=== PATIENT | female | born 1950 ===

== ENCOUNTER 2020-08-21 11:38 | Outpatient (REF) | payer MEDICARE, SELFPAY ==
--- NOTE | ~2020-08-21 | MM_ITS ---
EXAMINATION: MM SCREENING DIGITAL BREAST TOMOSYNTHESIS, BILATERAL CLINICAL INFORMATION: Screening. Asymptomatic. The lifetime risk of breast cancer based on the Tyrer-Cuzick Model is 3.0%. COMPARISON: Mammography: March 23, 2019 and studies dating back to October 27, 2013 TECHNIQUE: Digital breast tomosynthesis is performed in both the craniocaudal and mediolateral oblique views along with computer-aided detection (CAD). Synthesized 2D images are generated from the tomosynthesis. FINDINGS: There are scattered areas of fibroglandular density (ACR BI-RADS breast composition Category b). There are no significant masses, abnormal calcifications, or other abnormalities. MM/MM tomosynthesis screening BI IMPRESSION: There are no significant changes from prior study. ASSESSMENT: BI-RADS 1: Negative RECOMMENDATION: Routine annual mammography screening. This patient's information was entered into a reminder system with a target due date for their next mammogram.
== END 2020-08-21 11:39 | disposition home or self-care (01) ==
LOC: HO.MAMMO 11:38
PROVIDERS: Visit Provider Nurse Practitioner Family
DX: Z12.31 Encounter for screening mammogram for malignant neoplasm of breast (principal)
CPT/HCPCS: 77063; 77067

== ENCOUNTER 2020-09-06 10:24 | Outpatient (REF) | payer MEDICARE, SELFPAY | END 2020-09-06 10:25 | disposition home or self-care (01) | LOC: HO.LAB 10:24 | PROVIDERS: Visit Provider Internal Medicine | DX: Z20.822 Contact with and (suspected) exposure to COVID-19 (principal) | CPT/HCPCS: C9803; U0003; U0005 ==

== ENCOUNTER → 2021-01-20 09:37 | Outpatient (BNVA) | payer MEDICARE, SELFPAY | PROVIDERS: PCP Nurse Practitioner Family; Referring Provider Internal Medicine; Visit Provider Internal Medicine | DX: I35.0 Nonrheumatic aortic (valve) stenosis (principal); I35.1 Nonrheumatic aortic (valve) insufficiency; I77.810 Thoracic aortic ectasia; I10 Essential (primary) hypertension | CPT/HCPCS: 93005; 99212 ==

== ENCOUNTER 2021-04-25 11:02 | Outpatient (REF) | payer MEDICARE, SELFPAY ==
--- NOTE | ~2021-04-25 | XR_ITS ---
EXAMINATION: XR SACRUM AND COCCYX CLINICAL INFORMATION: Sacrococcygeal disorders COMPARISON: None TECHNIQUE: 3 views of the sacrum/coccyx. FINDINGS: There is no fracture identified. The coccyx is well aligned. The sacroiliac joints are symmetric. No abnormal sclerosis. No fusion. Degenerative changes of the visualized lower lumbar spine. Nonobstructive bowel gas pattern. XR/XR sacrum coccyx min 2V IMPRESSION: Unremarkable appearance of the sacrum. Degenerative changes at the lower lumbar spine.
== END 2021-04-25 11:03 | disposition home or self-care (01) ==
LOC: HO.XRAY 11:02
PROVIDERS: PCP Nurse Practitioner; Visit Provider Nurse Practitioner
DX: M53.3 Sacrococcygeal disorders, not elsewhere classified (principal)
CPT/HCPCS: 72220

== ENCOUNTER → 2021-05-07 10:02 | Outpatient (REF) | payer MEDICARE, SELFPAY ==
--- NOTE | 2021-05-07 10:07 | CA_ITS ---
Transthoracic Echocardiogram Patient (Last, First, Middle): Angélica Rodriguez, Gender: Female Date of : 1950 Age: 71 Procedure Date: 05/07/2021 Procedure Type: Transthoracic Echocardiogram Location: OP Height: 152.4 cm Weight: 74.84 kg BSA: 1.72 m2 Heart Rate: bpm BP: 138 / 80 mmHg Auto Service Instructor: RORO Referring MD: Nathanael Andrade MD Director Of Education And Training: Apollo Johnson MD Symptoms: I35.0 - Nonrheumatic aortic (valve) stenosis Study Quality: Fair ECG Rhythm: Sinus Conclusions: - 1. Normal LV systolic function with impaired relaxation filling pattern 2. Moderate aortic stenosis 3. Normal RV systolic pressure 4. Mildly dilated ascending aorta 5. No gross pericardial effusion Findings Left Ventricle Normal left ventricular size, thickness, and systolic function. The visually estimated ejection fraction is between 60-65%. Spectral Doppler is indicative of an impaired relaxation filling pattern. E/E prime ratio is between 8 and 15 consistent with indeterminate filling pressures. Right Ventricle Normal right ventricular cavity size and systolic function. Atria Both atria are normal in size. There is no evidence of interatrial shunt. Aortic Valve The aortic valve was not well visualized. There is mild calcification of the aortic valve. There is moderate aortic valve stenosis. The peak aortic gradient is 26 mmHg.The mean gradient is 15 mmHg. The aortic valve area is 1.37 cm2. There is mild aortic valve regurgitation. Mitral Valve There is mild anterior and posterior mitral leaflet thickening. There is trace mitral valve regurgitation. There is no mitral valve stenosis. Pulmonic Valve The pulmonic valve was not well visualized. Tricuspid Valve Likely normal tricuspid valve structure and function. There is mild tricuspid valve regurgitation. The right ventricular systolic pressure is normal. The right ventricular systolic pressure is 23 mmHg. Normal right atrial pressure. There is no evidence of pulmonary hypertension. Great Vessels The pulmonary artery was not well visualized. There is mild dilatation of the ascending aorta measuring 3.80 cm. Venous The inferior vena cava is normal in size and collapses greater than 50% with inspiration. Pericardium/Pleural There is no evidence of pericardial effusion. Prior Study Comparison No significant change compared to prior study dated: 08/18/2019. Measurements 2D Linear Measurements IVSd: 0.76 0.6-0.9/0.6-1.0 cm LVIDd: 4.29 3.9-5.3/4.2-5.9 cm LVIDd Index: 2.49 2.4-3.2/2.2-3.1 cm/m2 LVIDs: 2.92 2.0-3.6 cm LVPWd: 1.20 0.7-1.1 cm LA Diam: 3.40 2.7-3.8/3.0-4.0 cm LAIDs Index: 1.98 1.5-2.3 cm/m2 LV Mass: 172.04 67-162/88-224 g LV Mass Index: 100.02 43-95/49-115 g/m2 LVOT Diam: 2.00 3.0+(-)1.3 cm 2D Systolic Function EF 4C: 61.70 >55% EF 2C: 62.00 >55% EF BiP: 61.50 >55% Mitral Valve MV Pk E: 0.73 MV PK A: 0.89 MV Decel Time: 248.00 E/A: 0.80 E'Lateral: 8.92 E'Medial: 6.64 E/E' Med: 11.00 E/E' Lat: 8.20 PHT: 73.00 MVA PHT: 3.01 Decel [place]: 2.93 Aortic Valve AoV Pk Elvis: 2.53 AoV Mn Elvis: 1.76 AoV VTI: 0.58 AoV Pk Grad: 26.00 Aov Mn Grad: 15.00 NADIRA Cont.VTI: 1.37 AI Pk Elvis: 4.69 AI [place]: 1.91 LVOT LVOT Pk Elvis: 1.12 LVOT Mn Elvis: 0.74 LVOT VTI: 0.25 LVOT Pk Grad: 5.00 LVOT Mn Grad: 3.00 LVOT Diam: 2.00 LVOT Area: 3.14 Diastolic Function MV Pk E: 0.73 MV Pk A: 0.89 E/A: 0.80 E'Medial: 6.64 E/E' Med: 11.00 E' Laterial: 8.92 E/E' Lat: 8.20 Right Ventricle TAPSE (mm): 2.20 Tricuspid Valve TR Pk Elvis: 2.26 TR Pk Grad: 20.00 RA Press: 3.00 RVSP: 23.00 Great Vessels Aorta Ao Asc: 3.80 2.1-3.4 cm Updated in Other Vendor System with Status of Final Apollo Johnson MD electronically signed on 05/08/2021 4:20:43 PM with status of Final
== END ==
LOC: HO.CARD 10:02
PROVIDERS: Visit Provider Internal Medicine
DX: I35.0 Nonrheumatic aortic (valve) stenosis (principal)
CPT/HCPCS: 93306

== ENCOUNTER → 2021-07-07 10:38 | Outpatient (BNVA) | payer MEDICARE, SELFPAY | PROVIDERS: PCP Nurse Practitioner; Referring Provider Nurse Practitioner; Visit Provider Internal Medicine | DX: I35.0 Nonrheumatic aortic (valve) stenosis (principal); I35.1 Nonrheumatic aortic (valve) insufficiency; I77.810 Thoracic aortic ectasia; I10 Essential (primary) hypertension | CPT/HCPCS: 99212 ==

== ENCOUNTER 2021-08-27 11:49 | Outpatient (REF) | payer MEDICARE, SELFPAY ==
--- NOTE | ~2021-08-27 | MM_ITS ---
EXAMINATION: BONE DENSITOMETRY CLINICAL INDICATION: Vitamin D deficiency. COMPARISON: Previous BD dated 07/19/2019 and baseline BD dated 09/04/2010. TECHNIQUE: Using a Airu DXA System (software version: 13.1) manufactured by [employer], dual-energy x-ray absorptiometry was performed of the lumbar spine and left hip. The images are of good technical quality. Summary results are attached. FINDINGS: AP SPINE L1-L3 (excluding L4): The data of L1-L4 has been changed to exclude the L4 vertebral body, because degenerative changes at this level may cause overestimation of lumbar spine density. Current: BMD 1.420 g/cm2, Z-score 3.5, T-score 2.1, normal, 1.1% increase from previous, 0.9% increase from baseline (<5% change is not significant). Prior: BMD 1.405 g/cm2. Baseline: BMD 1.408 g/cm2. LEFT FEMUR, NECK: Current: BMD 0.913 g/cm2, Z-score 0.7, T-score -0.9, normal. Prior: BMD 1.024 g/cm2. Baseline: BMD 1.066 g/cm2. LEFT FEMUR, TOTAL: Current: BMD 1.075 g/cm2, Z-score 1.9, T-score 0.5, normal, 7.7% decrease from previous, 10.5% decrease from baseline (<5% change is not significant). Prior: BMD 1.165 g/cm2. Baseline: BMD 1.201 g/cm2. IDENTIFIED RISK FACTORS: Early menopause, hysterectomy, secondary osteoporosis. HISTORY OF FRACTURE: None listed. MEDICATIONS: Multivitamin, vitamin D. MM/XR DEXA axial skeleton IMPRESSION: 1. DIAGNOSIS: Normal bone density based on the lowest T-score value of -0.9 in the femoral neck applying World Health Organization criteria. 2. 10-YEAR FRACTURE RISK PREDICTION, FRAX: According to the guidelines, FRAX calculation should only be performed on patients in the osteopenia bone density category. Therefore, FRAX was not performed on this patient. 3. Treatment Recommendations: NOF guidelines recommend consideration for treatment in postmenopausal women and men age 50 and older presenting with the following: -A hip or vertebral (clinical or morphometric) fracture. -T-score less than or equal to -2.5 at the femoral neck or spine after appropriate evaluation to exclude secondary causes. -Low bone mass at the hip or spine and a 10-year fracture probability by FRAX of greater than or equal to 3% for hip fracture or greater than or equal to 20% for major osteoporotic fracture based on the [place] adapted WHO algorithm. 4. Other Recommendations: All treatment decisions require clinical judgment and consideration of individual patient factors, including patient preferences, comorbidities, previous drug use, risk factors not captured in the FRAX model (e.g. frailty, falls, vitamin D deficiency, increased bone turnover, interval significant decline in bone density) and possible under or overestimation of fracture risk by FRAX. FUTURE SCAN RECOMMENDATION: People with diagnosed cases of osteoporosis or at high risk for fracture should have regular bone mineral density tests. For patients eligible for Medicare, routine testing is allowed once every 2 years. The testing frequency can be increased to one year for patients who have rapidly progressing disease, those who are receiving or discontinuing medical therapy to restore bone mass, or have additional risk factors.
--- NOTE | ~2021-08-27 | MM_ITS ---
EXAMINATION: MM SCREENING DIGITAL BREAST TOMOSYNTHESIS, BILATERAL CLINICAL INFORMATION: Screening. Asymptomatic. The lifetime risk of breast cancer based on the Tyrer-Cuzick Model is 5%. COMPARISON: Mammography: 08/21/2020, 03/23/2019, 03/08/2018 TECHNIQUE: Digital breast tomosynthesis is performed in both the craniocaudal and mediolateral oblique views along with computer-aided detection (CAD). Synthesized 2D images are generated from the tomosynthesis. Additional bilateral CC views are provided. FINDINGS: There are scattered areas of fibroglandular density (ACR BI-RADS breast composition Category b). There are no significant masses, abnormal calcifications, or other abnormalities. Parenchymal pattern is similar to prior studies. There is no developing density or architectural abnormality. The axilla and skin contours are unremarkable. No significant changes. MM/MM tomosynthesis screening BI IMPRESSION: No mammographic evidence of malignancy. ASSESSMENT: BI-RADS 1: Negative RECOMMENDATION: Routine annual mammography screening. This patient's information was entered into a reminder system with a target due date for their next mammogram.
== END 2021-08-27 11:50 | disposition home or self-care (01) ==
LOC: HO.MAMMO 11:49
PROVIDERS: PCP Registered Nurse; Visit Provider Registered Nurse
DX: Z12.31 Encounter for screening mammogram for malignant neoplasm of breast (principal); Z13.820 Encounter for screening for osteoporosis; Z78.0 Asymptomatic menopausal state; E55.9 Vitamin D deficiency, unspecified
CPT/HCPCS: 77063; 77067; 77080

== ENCOUNTER → 2022-08-11 10:26 | Outpatient (REF) | payer MEDICARE, SELFPAY ==
--- NOTE | 2022-08-11 10:31 | CA_ITS ---
Transthoracic Echocardiogram Patient (Last, First, Middle): Angélica Rodriguez, Gender: Female Date of : 1950 Age: 72 Procedure Date: 08/11/2022 Procedure Type: Transthoracic Echocardiogram Location: OP Height: 157.48 cm Weight: 74.84 kg BSA: 1.76 m2 Heart Rate: 68 bpm BP: 140 / 80 mmHg Metallurgical Engineering Teacher: DEYANIRA Fitzgerald MD: Nathanael Andrade MD Seafood Preparer: Apollo Johnson MD Symptoms: I35.0 - Nonrheumatic aortic (valve) stenosis Study Quality: Adequate ECG Rhythm: Sinus Conclusions: - 1. Normal LV systolic function with grade 1 diastolic dysfunction 2. Moderate aortic stenosis and mild aortic regurgitation 3. Normal RV systolic pressure 4. Mildly dilated ascending aorta at 3.7 cm 5. No gross pericardial effusion Findings Left Ventricle Normal left ventricular size, thickness, and systolic function. The visually estimated ejection fraction is between 60-65%. Spectral Doppler is indicative of an impaired relaxation filling pattern. E/E prime ratio is <8, consistent with normal filling pressures. Evidence suggests grade I (mild) diastolic dysfunction. Right Ventricle Normal right ventricular cavity size and systolic function. Atria Both atria are normal in size. There is no evidence of interatrial shunt. Aortic Valve There is mild calcification of the aortic valve. There is mild thickening of the aortic valve. There is moderate aortic valve stenosis. The mean gradient is 14 mmHg. The aortic valve area is 1.23 cm2. There is mild aortic valve regurgitation. Mitral Valve There is mild anterior and posterior mitral leaflet thickening. There is trace mitral valve regurgitation. There is no mitral valve stenosis. Pulmonic Valve The pulmonic valve is likely normal. Tricuspid Valve Normal tricuspid valve structure. There is trace tricuspid valve regurgitation. The right ventricular systolic pressure is normal. The right ventricular systolic pressure is 18 mmHg. Normal right atrial pressure. There is no evidence of pulmonary hypertension. Great Vessels The pulmonary artery was not well visualized. There is mild dilatation of the ascending aorta measuring 3.70 cm. Venous The inferior vena cava is normal in size and collapses greater than 50% with inspiration. Pericardium/Pleural There is no evidence of pericardial effusion. Prior Study Comparison No significant change compared to prior study dated: 05/07/2021. Measurements 2D Linear Measurements IVSd: 1.04 0.6-0.9/0.6-1.0 cm LVIDd: 3.70 3.9-5.3/4.2-5.9 cm LVIDd Index: 2.10 2.4-3.2/2.2-3.1 cm/m2 LVIDs: 2.37 2.0-3.6 cm LVPWd: 0.95 0.7-1.1 cm LA Diam: 2.50 2.7-3.8/3.0-4.0 cm LAIDs Index: 1.42 1.5-2.3 cm/m2 LV Mass: 139.01 67-162/88-224 g LV Mass Index: 78.98 43-95/49-115 g/m2 LVOT Diam: 1.80 3.0+(-)1.3 cm 2D Systolic Function EF 4C: 59.10 >55% EF 2C: 62.30 >55% EF BiP: 60.40 >55% Mitral Valve MV Pk E: 0.77 MV PK A: 1.08 MV Decel Time: 342.00 E/A: 0.70 E'Lateral: 9.25 E'Medial: 8.38 E/E' Med: 9.10 E/E' Lat: 8.30 PHT: 100.00 MVA PHT: 2.20 Decel [place]: 2.24 Aortic Valve AoV Pk Elvis: 2.34 AoV Mn Elvis: 1.77 AoV VTI: 0.51 AoV Pk Grad: 22.00 Aov Mn Grad: 14.00 NADIRA Cont.VTI: 1.23 LVOT LVOT Pk Elvis: 1.18 LVOT Mn Elvis: 0.84 LVOT VTI: 0.25 LVOT Pk Grad: 6.00 LVOT Mn Grad: 3.00 LVOT Diam: 1.80 LVOT Area: 2.54 Diastolic Function MV Pk E: 0.77 MV Pk A: 1.08 E/A: 0.70 E'Medial: 8.38 E/E' Med: 9.10 E' Laterial: 9.25 E/E' Lat: 8.30 Right Ventricle TAPSE (mm): 20.00 TVS' [place]: 12.10 Tricuspid Valve TR Pk Elvis: 1.92 TR Pk Grad: 15.00 RA Press: 3.00 RVSP: 18.00 Great Vessels Aorta Sinus of Valsalva: 3.40 2.0-3.5 cm Ao Asc: 3.70 2.1-3.4 cm Pulmonary Valve PV Pk Elvis: 0.88 Peak PV Grad: 3.00 Updated in Other Vendor System with Status of Final Apollo Johnson MD electronically signed on 08/12/2022 11:18:53 AM with status of Final
== END ==
LOC: HO.CARD 10:26
PROVIDERS: PCP Registered Nurse; Visit Provider Internal Medicine
DX: I35.0 Nonrheumatic aortic (valve) stenosis (principal)
CPT/HCPCS: 93306

== ENCOUNTER 2022-09-11 11:20 | Outpatient (REF) | payer MEDICARE, SELFPAY ==
--- NOTE | ~2022-09-11 | MM_ITS ---
EXAMINATION: MM SCREENING DIGITAL BREAST TOMOSYNTHESIS, BILATERAL CLINICAL INFORMATION: Screening. Asymptomatic. The lifetime risk of breast cancer based on the Tyrer-Cuzick Model is 7%. COMPARISON: Mammography: 08/27/2021, 08/21/2020, 03/23/2019 TECHNIQUE: Digital breast tomosynthesis is performed in both the craniocaudal and mediolateral oblique views along with computer-aided detection (CAD). Synthesized 2D images are generated from the tomosynthesis. Additional left CC view is provided. FINDINGS: There are scattered areas of fibroglandular density (ACR BI-RADS breast composition Category b). There are no significant masses, abnormal calcifications, or other abnormalities. No architectural abnormality or developing density or significant change from prior studies. The axilla and skin contours are unremarkable. MM/MM tomosynthesis screening BI IMPRESSION: No mammographic evidence of malignancy. ASSESSMENT: BI-RADS 1: Negative RECOMMENDATION: Routine annual mammography screening. This patient's information was entered into a reminder system with a target due date for their next mammogram.
== END 2022-09-11 11:21 | disposition home or self-care (01) ==
LOC: HO.MAMMO 11:20
PROVIDERS: PCP Registered Nurse; Visit Provider Registered Nurse
DX: Z12.31 Encounter for screening mammogram for malignant neoplasm of breast (principal)
CPT/HCPCS: 77063; 77067

== ENCOUNTER → 2022-11-17 12:25 | Outpatient (BNVA) | payer OTHER, SELFPAY | PROVIDERS: PCP Registered Nurse; Referring Provider Registered Nurse; Visit Provider Internal Medicine | DX: I35.0 Nonrheumatic aortic (valve) stenosis (principal); I35.1 Nonrheumatic aortic (valve) insufficiency; I77.810 Thoracic aortic ectasia; I10 Essential (primary) hypertension | CPT/HCPCS: 93005; 99212 ==

== ENCOUNTER 2023-07-05 12:02 | Outpatient (REF) | payer OTHER, SELFPAY ==
[2023-07-05 13:47] LABS: Alanine Aminotransferase 14 U/L (0-31); Alkaline Phosphatase 99 U/L (39-117); Anion Gap 10 (12-20); Aspartate Amino Transferase 20 U/L (5-31); Bilirubin Total 0.4 mg/dL (0.0-1.0); Blood Urea Nitrogen 11 mg/dL (9-16); Calcium 9.7 mg/dL (8.4-10.2); Carbon Dioxide 27 mmol/L (22-29); Chloride 107 mmol/L (96-108); Cholesterol 213 mg/dL (<200); Estimated Glomerular Filt Rate > 60; Glucose Random 102 mg/dL (60-115); HDL Cholesterol 52 mg/dL (>40); LDL Cholesterol Calculated 128 mg/dL (<100); Potassium 4.3 mmol/L (3.3-5.1); Sodium 140 mmol/L (135-145); Total Protein 7.9 g/dL (6.5-8.0); Triglycerides 166 mg/dL (<150)
[2023-07-05 14:02] LABS: TSH reflex Free T4 0.74 uIU/mL (0.32-4.0); Vitamin D 25-OH Total 27.4 ng/mL (>30)
[2023-07-05 17:44] LABS: Creatinine Urine 199.83 mg/dL; Microalbum/Creatinine Ratio Ur 12.5 ug/mg cr (<30)
== END 2023-07-05 12:03 | disposition home or self-care (01) ==
LOC: HO.HHCL 12:02
PROVIDERS: Visit Provider Registered Nurse
DX: E55.9 Vitamin D deficiency, unspecified (principal); E11.9 Type 2 diabetes mellitus without complications
CPT/HCPCS: 36415; 80053; 80061; 82043; 82306; 82570; 84443

== ENCOUNTER 2023-09-20 14:01 | Outpatient (REF) | payer MEDICARE, SELFPAY | END 2023-09-20 14:02 | disposition home or self-care (01) | LOC: HO.MAMMO 14:01 | PROVIDERS: PCP Registered Nurse; Visit Provider Registered Nurse | DX: Z12.31 Encounter for screening mammogram for malignant neoplasm of breast (principal) | CPT/HCPCS: 77063; 77067 ==

== ENCOUNTER → 2023-09-20 14:45 | Outpatient (BNV) | payer MEDICARE, SELFPAY | PROVIDERS: PCP Registered Nurse; Visit Provider Radiology Diagnostic Radiology | DX: Z12.31 Encounter for screening mammogram for malignant neoplasm of breast (principal) | CPT/HCPCS: 77063; 77067 ==

== ENCOUNTER 2023-11-18 11:58 | Outpatient (AMB) | payer OTHER, SELFPAY ==
--- NOTE | 2023-11-18 12:34 | A.OFFVIS_ITS ---
Vital Signs 11/18/23 12:35 Height 5 ft 2 in Weight 162 lb 4.163 oz BMI 29.7 BP 140/64 H Blood Pressure Location Lt brachial Position Sitting Pulse 59 Pulse Source Monitor Intake Visit Reasons: 1 yr f/up s/p echo Wan Support Specialist Required: Yes Wan Support Specialist Name: [id number]/[email or web address] Accompanied by: Grand Child Allergies No Known Allergies Allergy (Verified 11/17/22 12:41) Medication List - Last Reconciled 11/18/23 by Nathanael Andrade MD cholecalciferol (vitamin D3) 50 mcg PO DAILY docusate sodium 100 mg PO BID PRN lisinopril 20 mg PO DAILY metformin 500 mg PO QPM rosuvastatin 20 mg PO BEDTIME HPI Comments Details: Angélica returns for follow-up regarding aortic valve stenosis. Overall, no specific cardiac complaints. Doing okay. [facility] Medical History (Updated 11/18/23 @ 12:49 by Nathanael Andrade MD) Non-rheumatic aortic stenosis Essential hypertension Surgical History Hx of colonoscopy Hx of hysterectomy Hx of section Family History Father Diabetes Mother No problems noted. Social History Patient Tobacco Use Status: Never used Tobacco Review of Systems Const Denies chills, Denies fatigue, Denies fever(s), Denies frequent falls, Denies weakness, Denies weight gain and Denies weight loss ENT Denies dizziness Card Denies chest pain, Denies leg edema, Denies lightheadedness, Denies palpitations, Denies dyspnea and Denies dyspnea on exertion Resp Denies cough, Denies dyspnea and Denies dyspnea on exertion GI Denies hematochezia Musc Denies abnormal gait, Denies muscle weakness, Denies numbness, Denies radiating pain into limb and Denies tingling Neuro Denies abnormal gait, Denies dizziness, Denies frequent falls, Denies numbness, Denies tingling and Denies weakness Endo Denies fatigue and Denies palpitations Physical Exam Vital Signs: Last Vital Signs Pulse 59 11/18/23 12:35 BP 140/64 H 11/18/23 12:35 BMI result Body Mass Index 29.7 Const General: comfortable and no acute distress Orientation/consciousness: patient oriented x3 HEENT Other: Unremarkable Head: Yes normal to inspection Neck Neck: Yes normal visual inspection Chest Chest palpation & inspection: normal inspection of the chest Resp Auscultation: clear to auscultation bilaterally Cardio Palpation: normal PMI Heart sounds: S1 normal heart sound present, S2 normal heart sound present, no gallops, Murmur heart sound present systolic III/ and at the right sternal border and no rubs GI Palpation (GI): Soft to palpation Back/Spine/Pelvis Other: unremarkable Skin General skin exam: no rashes or lesions noted Neuro General: patient oriented x3 Extrem General: Yes normal to inspection Psych Mental Status: mental status grossly normal Office Procedures EKG Details: EKG with sinus rhythm at 59/Min; voltage criteria for LVH; [place] [id number], Complete Assessment & Plan Assessment & Plan (1) Non-rheumatic aortic stenosis: Code(s): I35.0 - Nonrheumatic aortic (valve) stenosis Category: Medical (2) Non-rheumatic aortic regurgitation: Code(s): I35.1 - Nonrheumatic aortic (valve) insufficiency Category: Medical (3) Essential hypertension: Code(s): I10 - Essential (primary) hypertension Category: Medical Plan In the last echocardiogram, mean gradient across aortic valve was 14 mm Hg. Calculated valve area of 1.2 sq cm. Overall, thought to be moderate aortic stenosis. Mild aortic regurgitation. Ascending aortic size was 3.7 cm. As it has been almost a year, we can recheck the study. With regard to high blood pressure, slightly elevated today. Advised her to do home blood pressure checks and contact us for any persistently elevated blood pressure > 140 mm Hg. Discussed with granddaughter who came for appointment. Follow-up in 1 year. Orders: Orders CA echo transthoracic complete Today I35.0 - Nonrheumatic aortic (valve) stenosis Coding Level of Care Code Est Pt Level 4 (68215) Diagnoses Non-rheumatic aortic stenosis I35.0 Non-rheumatic aortic regurgitation I35.1 Essential hypertension I10 CPT Codes EKG - CPT: 52866-[id number], Complete ([id number])
[2023-11-18 12:35] VITALS: BP 140/64; PULSE 59; BMI 29.7
== END 2023-11-18 12:57 | disposition home or self-care (01) ==
PROVIDERS: PCP Registered Nurse; Visit Provider Internal Medicine
DX: I35.0 Nonrheumatic aortic (valve) stenosis (principal); I35.1 Nonrheumatic aortic (valve) insufficiency; I10 Essential (primary) hypertension
CPT/HCPCS: 93010; 99214

== ENCOUNTER → 2023-11-18 11:58 | Outpatient (BNVA) | payer OTHER, SELFPAY | PROVIDERS: PCP Registered Nurse; Visit Provider Internal Medicine | DX: I35.0 Nonrheumatic aortic (valve) stenosis (principal); I35.1 Nonrheumatic aortic (valve) insufficiency; I10 Essential (primary) hypertension | CPT/HCPCS: 93005; 99212 ==

== ENCOUNTER → 2023-12-08 10:27 | Outpatient (REF) | payer MEDICARE, SELFPAY ==
--- NOTE | 2023-12-08 10:32 | CA_ITS ---
Transthoracic Echocardiogram Patient (Last, First, Middle): Angélica Rodriguez, Gender: Female Date of : 1950 Age: 73 Procedure Date: 12/08/2023 Procedure Type: Transthoracic Echocardiogram Location: OP Height: 160.02 cm Weight: 73.94 kg BSA: 1.77 m2 Heart Rate: bpm BP: 140 / 78 mmHg Refrigeration Mechanic: TO Referring MD: Nathanael Andrade MD Symptoms: I35.0 - Nonrheumatic aortic (valve) stenosis Study Quality: Adequate Conclusions: - 1. Normal LV ejection fraction 60 65% with impaired relaxation filling pattern 2. Moderate aortic stenosis and mild aortic regurgitation 3. [id number] enlargement of ascending aorta at 4.4 cm which is further large compared to prior study 4. Normal RV systolic pressure 5. No gross pericardial effusion Findings Left Ventricle Normal left ventricular size, thickness, and systolic function. The visually estimated ejection fraction is between 60-65%. Spectral Doppler is indicative of an impaired relaxation filling pattern. Right Ventricle Normal right ventricular cavity size and systolic function. Atria Both atria are normal in size. Interatrial shunt cannot be excluded. Aortic Valve There is mild calcification of the aortic valve. There is mild thickening of the aortic valve. There is moderate aortic valve stenosis. There is mild aortic valve regurgitation. Mitral Valve There is mild anterior and moderate posterior mitral leaflet thickening. There is mild mitral annular calcification. There is trace mitral valve regurgitation. There is no mitral valve stenosis. Pulmonic Valve The pulmonic valve is likely normal. Tricuspid Valve Normal tricuspid valve structure. There is mild tricuspid valve regurgitation. The right ventricular systolic pressure is normal. The right ventricular systolic pressure is 25 mmHg. Normal right atrial pressure. There is no evidence of pulmonary hypertension. Great Vessels The pulmonary artery was not well visualized. There is moderate dilatation of the ascending aorta measuring 4.40 cm. Venous The inferior vena cava is normal in size and collapses greater than 50% with inspiration. Pericardium/Pleural There is no evidence of pericardial effusion. Prior Study Comparison Changes noted compared to prior study dated: 08/11/2022. Ascending aorta is measured at 4.4 cm compared to prior study of 3.7 cm Measurements 2D Linear Measurements IVSd: 0.96 0.6-0.9/0.6-1.0 cm LVIDd: 4.43 3.9-5.3/4.2-5.9 cm LVIDd Index: 2.50 2.4-3.2/2.2-3.1 cm/m2 LVIDs: 2.87 2.0-3.6 cm LVPWd: 0.79 0.7-1.1 cm LA Diam: 2.60 2.7-3.8/3.0-4.0 cm LAIDs Index: 1.47 1.5-2.3 cm/m2 LV Mass: 153.86 67-162/88-224 g LV Mass Index: 86.93 43-95/49-115 g/m2 LVOT Diam: 2.00 3.0+(-)1.3 cm 2D Systolic Function EF 4C: 57.80 >55% EF 2C: 65.90 >55% EF BiP: 61.30 >55% Mitral Valve MV Pk E: 0.76 MV PK A: 0.84 MV Decel Time: 283.00 E/A: 0.90 E'Lateral: 7.40 E'Medial: 5.22 E/E' Med: 14.60 E/E' Lat: 10.30 PHT: 83.00 MVA PHT: 2.65 Decel [place]: 2.70 Aortic Valve AoV Pk Elvis: 2.39 AoV Mn Elvis: 1.77 AoV VTI: 0.59 AoV Pk Grad: 23.00 Aov Mn Grad: 14.00 NADIRA Cont.VTI: 1.32 AI Pk Elvis: 4.52 AI [place]: 2.12 LVOT LVOT Pk [place]: 0.99 LVOT Mn [place]: 0.74 LVOT VTI: 0.25 LVOT Pk Grad: 4.00 LVOT Mn Grad: 2.00 LVOT Diam: 2.00 LVOT Area: 3.14 Diastolic Function MV Pk E: 0.76 MV Pk A: 0.84 E/A: 0.90 E'Medial: 5.22 E/E' Med: 14.60 E' Laterial: 7.40 E/E' Lat: 10.30 Right Ventricle TAPSE (mm): 18.70 TVS' [place]: 9.90 Tricuspid Valve TR Pk [place]: 2.33 TR Pk Grad: 22.00 RA Press: 3.00 RVSP: 25.00 Great Vessels Aorta Sinus of Valsalva: 3.23 2.0-3.[address] [place]: 2.83 1.7-3.4 cm Ao Asc: 4.40 2.1-3.4 cm Ao Arch: 3.50 Updated in Other Vendor System with Status of Final Apollo Johnson MD electronically signed on 12/09/2023 5:45:36 PM with status of Final
== END ==
LOC: HO.CARD 10:27
PROVIDERS: PCP Registered Nurse; Visit Provider Internal Medicine
DX: I35.0 Nonrheumatic aortic (valve) stenosis (principal)
CPT/HCPCS: 93306

== ENCOUNTER → 2023-12-08 10:32 | Outpatient (BNV) | payer MEDICARE, SELFPAY | PROVIDERS: PCP Registered Nurse; Visit Provider Internal Medicine Cardiovascular Disease | DX: I35.2 Nonrheumatic aortic (valve) stenosis with insufficiency (principal); I36.1 Nonrheumatic tricuspid (valve) insufficiency; I34.81 Nonrheumatic mitral (valve) annulus calcification | CPT/HCPCS: 93306 ==

== ENCOUNTER → 2024-06-05 13:47 | Outpatient (REF) | payer MEDICARE, MEDICAID, SELFPAY ==
--- NOTE | 2024-06-05 13:52 | CA_ITS ---
Transthoracic Echocardiogram Patient (Last, First, Middle): Angélica Rodriguez, Gender: Female Date of : 1950 Age: 74 Procedure Date: 06/05/2024 Procedure Type: Transthoracic Echocardiogram Location: OP Height: 154.94 cm Weight: 74.84 kg BSA: 1.74 m2 Heart Rate: bpm BP: 124 / 80 mmHg Machine Fur Cleaner: Referring MD: Nathanael Andrade MD Symptoms: I77.810 - Thoracic aortic ectasia Study Quality: Good ECG Rhythm: Sinus Conclusions: - The left ventricular systolic function is normal. The calculated ejection fraction is 64% by biplane method. - There is mild to moderate aortic valve stenosis. - There is mild dilatation of the ascending aorta measuring 4.10 cm. Findings Left Ventricle Normal left ventricular cavity size. There is normal left ventricular wall thickness. The left ventricular systolic function is normal. The calculated ejection fraction is 64% by biplane method. There is no evidence of regional wall motion abnormalities. Evidence suggests grade I (mild) diastolic dysfunction. Right Ventricle Normal right ventricular cavity size and systolic function. Atria Both atria are normal in size. Aortic Valve There is severe calcification of the aortic valve. There is mild to moderate aortic valve stenosis. The peak aortic velocity is 2.81 m/s with a calculated peak gradient of 32 mmHg. The mean gradient is 15 mmHg. The aortic valve area is 1.37 cm2. There is mild aortic valve regurgitation. Dimensionless index 0.43. Stroke volume index 51 mL/m2. Mitral Valve The mitral valve appears normal. There is trace mitral valve regurgitation. There is no mitral valve stenosis. Pulmonic Valve The pulmonic valve is likely normal. Tricuspid Valve Normal tricuspid valve structure. There is mild tricuspid valve regurgitation. There is no evidence of pulmonary hypertension. Great Vessels There is mild dilatation of the ascending aorta measuring 4.10 cm. Venous The inferior vena cava is normal in size and collapses greater than 50% with inspiration. Pericardium/Pleural There is a trivial pericardial effusion. Prior Study Comparison Changes noted compared to prior study dated: 12/08/2023. Ascending aortic size is smaller; could be due to technical. Measurements 2D Linear Measurements IVSd: 0.93 0.6-0.9/0.6-1.0 cm LVIDd: 3.72 3.9-5.3/4.2-5.9 cm LVIDd Index: 2.14 2.4-3.2/2.2-3.1 cm/m2 LVIDs: 2.30 2.0-3.6 cm LVPWd: 0.92 0.7-1.1 cm Ao Root: 3.30 2.1-3.5 cm LA Diam: 3.10 2.7-3.8/3.0-4.0 cm LAIDs Index: 1.78 1.5-2.3 cm/m2 LV Mass: 126.28 67-162/88-224 g LV Mass Index: 72.57 43-95/49-115 g/m2 LVOT Diam: 2.00 3.0+(-)1.3 cm 2D Systolic Function EF 4C: 65.40 >55% EF 2C: 61.50 >55% EF BiP: 63.80 >55% Mitral Valve MV Pk E: 0.85 MV PK A: 1.15 MV Decel Time: 221.00 E/A: 0.70 E'Lateral: 6.85 E'Medial: 6.53 E/E' Med: 13.00 E/E' Lat: 12.40 PHT: 65.00 MVA PHT: 3.38 Decel Duchesne: 3.83 Aortic Valve AoV Pk Elvis: 2.81 AoV Mn Elvis: 1.74 AoV VTI: 0.65 AoV Pk Grad: 32.00 Aov Mn Grad: 15.00 NADIRA Cont.VTI: 1.37 AI Pk Elvis: 4.62 AI Duchesne: 2.75 LVOT LVOT Pk Elvis: 1.20 LVOT Mn Elvis: 0.74 LVOT VTI: 0.28 LVOT Pk Grad: 6.00 LVOT Mn Grad: 3.00 LVOT Diam: 2.00 LVOT Area: 3.14 Diastolic Function MV Pk E: 0.85 MV Pk A: 1.15 E/A: 0.70 E'Medial: 6.53 E/E' Med: 13.00 E' Laterial: 6.85 E/E' Lat: 12.40 Right Ventricle TAPSE (mm): 26.00 TVS' Elvis: 10.00 Tricuspid Valve TR Pk Elvis: 2.41 TR Pk Grad: 23.00 RA Press: 3.00 RVSP: 26.00 Great Vessels Aorta Ao Root-2D: 3.30 2.0-3.7 cm Ao Asc: 4.10 2.1-3.4 cm Pulmonary Valve PV Pk Elvis: 0.95 Peak PV Grad: 4.00 Updated in Other Vendor System with Status of Final Nathanael Andrade MD electronically signed on 06/05/2024 3:52:56 PM with status of Final
== END ==
LOC: HO.CARD 13:47
PROVIDERS: PCP Registered Nurse; Visit Provider Internal Medicine
DX: I77.810 Thoracic aortic ectasia (principal)
CPT/HCPCS: 93306

== ENCOUNTER → 2024-06-05 13:52 | Outpatient (BNV) | payer MEDICARE, MEDICAID, SELFPAY | PROVIDERS: PCP Registered Nurse; Visit Provider Internal Medicine | DX: I35.2 Nonrheumatic aortic (valve) stenosis with insufficiency (principal); I35.8 Other nonrheumatic aortic valve disorders; I36.1 Nonrheumatic tricuspid (valve) insufficiency; I51.89 Other ill-defined heart diseases | CPT/HCPCS: 93306 ==

== ENCOUNTER 2024-07-27 10:29 | Outpatient (REF) | payer MEDICARE, MEDICAID, SELFPAY ==
[2024-07-27 11:57] LABS: MANUAL DIFF FLAG NO
[2024-07-27 12:03] LABS: Basophils Percent Auto 0.5 % (0-2); Eosinophils Absolute Auto 0.1 X10*3/uL (0.0-0.4); Eosinophils Percent Auto 1.2 % (0-4); Hematocrit 40.6 % (37.0-47.0); Hemoglobin 13.2 g/dl (12.0-16.0); Imm Gran Abs Auto 0.03 X10*3/uL (0.00-0.03); Imm Gran Pct Auto 0.5 % (0.0-0.4); Lymphocytes Absolute Auto 1.7 X10*3/uL (1.2-4.9); Lymphocytes Percent Auto 29.3 % (20-40); Mean Corpuscular HGB Conc 32.5 g/dl (31.0-35.0); Mean Corpuscular Hemoglobin 28.3 pg (27.0-33.0); Mean Corpuscular Volume 86.9 fL (80.0-98.0); Mean Platelet Volume 10.6 fL (9.4-12.3); Monocytes Absolute Auto 0.4 X10*3/uL (0.1-1.2); Monocytes Percent Auto 6.2 % (2-11); Neutrophils Absolute Auto 3.7 x10*3/uL (2.0-8.3); Neutrophils Percent Auto 62.3 % (45-73); Platelet Count 263 X10*3/uL (160-400); Red Blood Count 4.67 X10*6/uL (4.20-5.50); Red Cell Distribution Width 13.3 % (11.0-16.0); White Blood Count 5.9 X10*3/uL (4.8-10.8)
[2024-07-27 12:28] LABS: Alanine Aminotransferase 16 U/L (0-31); Albumin Level 3.9 g/dL (3.5-5.0); Alkaline Phosphatase 94 U/L (39-117); Anion Gap 8 (12-20); Aspartate Amino Transferase 25 U/L (5-31); Bilirubin Total 0.4 mg/dL (0.0-1.0); Blood Urea Nitrogen 13 mg/dL (9-16); Calcium 9.1 mg/dL (8.4-10.2); Carbon Dioxide 28 mmol/L (22-29); Chloride 109 mmol/L (96-108); Cholesterol 195 mg/dL (<200); Estimated Glomerular Filt Rate > 60; Glucose Random 119 mg/dL (60-115); HDL Cholesterol 51 mg/dL (>40); Iron 113 mcg/dL (30-160); LDL Cholesterol Calculated 118 mg/dL (<100); Percent Iron Saturation 45 % (15-50); Potassium 4.3 mmol/L (3.3-5.1); Sodium 141 mmol/L (135-145); Total Iron Binding Capacity 249 mcg/dL (228-428); Total Protein 7.6 g/dL (6.5-8.0); Triglycerides 132 mg/dL (<150); Unsaturated Iron Binding 136 ug/dL
--- OUTSIDE RECORDS SUMMARY | 2024-07-27 12:32 | XMS_ITS | Encounter Summary ---
Author Organization [employer] Address [address] [facility] [address] [place] [address] Care Team Providers Care Economic Development Director Name Role Phone Yoselin Hsieh Primary Care Provider [phone] Nathanael Andrade MD Unavailable [phone] Esperanza Campa OD Unavailable Reason for Visit * Reason Onset Date Comments June recall 07/12/2024 Encounter Details Date Type Department Care Team ([facility] st Contact Info) Description 07/12/2024 Telephone [facility] MED & PEDS [address] [place], [place] [id number] Yoselin Hsieh FNP [address] [place], [place] [id number] June recall Social History Tobacco Use Types Packs/Day Years Used Date Smoking Tobacco: Never Smokeless Tobacco: Never Alcohol Use Standard Drinks/Week Comments Never 0 (1 standard drink = 0.6 oz pur e alcohol) Depression Answer Date Recorded Patient Health Questionnaire-9 Score 3 04/09/2024 Patient Health Questionnaire-9 Score 3 04/09/2024 Last PHQ-9: Questionnaire Data Not on file 1 06/09/2023 Housing Stability Answer Date Recorded What is your housing situation today? I have lakeisha meza 11/03/[address] you li ve. Do you have problems with any of the following? None of the above 11/03/2023 Food Insecurity Answer Date Recorded Within the past 12 months, y ou worried that your food would run out before you got money to buy more: Never True 11/03/2023 Within the past 12 months,th e food you bought just didn't last and you didn't have enough money to get more: Never True 04/2024 Transportation Answer Date Recorded In the past 12 months, has l ack of transportation kept you from medical appts, meetings, work or from getting things needed for daily living? No 11/03/2023 Utilities Answer Date Recorded In the past 12 months, has t he electric, gas, oil or water company threatened to shut off services in your home? No 11/03/2023 Depression Answer Date Recorded Patient Health Questionnaire-2 Score 1 04/09/2024 Comments Unknown Sex and Gender Information Value Date Recorded Sex Assigned at Female 03/23/2022 10:16 AM EDT Legal Sex Female 10:16 AM EDT Gender Identity Female 03/23/2022 10:16 AM EDT Sexual Orientation Straight 03/23/2022 10 :16 AM EDT documented as of this encounter Miscellaneous Notes * Telephone Encounter - Eze Taveras [place] - 07/12/2024 2:37 PM EST Telephone call to patient to schedule a recall appointment. No answer, Left voicemail to return call to clinic.. Recall letter sent. Visit type: Follow up Appointment notes: CDM due: June With: Мария PT prefer be schedule at [facility] Please schedule appointment above if patient returns call documented in this encounter Plan of Treatment Upcoming Encounters Date Type Department Care Team (Late st Contact Info) Description 11/01/2024 10:30 AM EDT Office Visit [facility] MEDICINE [address] [place] [address] Yoselin Hsieh FNP [address] [place] [address] documented as of this encounter Visit Diagnoses Not on filedocumented in this encounter Additional Health Concerns Assessment Noted Time PHQ-9 Depression Total Score: 3 04/09/20 24 8:37 PM EST documented as of this encounter Care Teams Economic Development Director Relationship Specialty Start Date End Date Yoselin Hsieh FNP [address] [place] [address] PCP - General Family Medicine 01/13/22 Nathanael Andrade MD [address] [place] [address] Cardiology 04/09/24 Esperanza Campa OD [address] [place] [address] Optometry 04/09/24 documented as of this encounter
--- OUTSIDE RECORDS SUMMARY | 2024-07-27 12:32 | XMS_ITS | Encounter Summary ---
Author Organization [employer] Address [address] [facility] [address] [place] [address] Care Team Providers Care Linoleum Mechanic Name Role Phone МарияYoselin KARI Primary Care Provider [phone] Nathanael Andrade MD Unavailable [phone] Esperanza Campa OD Unavailable [phone] Reason for Visit * Reason Comments Diabetic Eye Exam Encounter Details Date Type Department Care Team (Late st Contact Info) Description 07/14/2024 10:00 AM EST Office Visit [facility] OPTOMETRY [address] [place] [address] Esperanza Campa, OD [address] [place] [address] Diabetes type 2, no ocular involvement (CMS/HCC) (Primary Dx); Combined forms of age-related cataract of both eyes; 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 female. Chief Complaint Diabetic Eye Exam HPI Here for a diabetic eye exam. She has Type II NIDDM. Her last HbA1c was 6.3% on 11/03/2023. Today the patient denies any new vision or ocular complaints since her last exam. Last exam was here in 12/2022. Last edited by Esperanza Campa, OD on 07/14/2024 11:24 AM. Current Outpatient Medications Medication Sig Dispense Refill acetaminophen (Tylenol) 500 MG tablet Take 1 tablet (500 mg) by mouth every 6 (six) hours if neededfor mild pain for up to 20 doses. 20 tablet 0 Alcohol Swabs (Alcohol Prep) pads Use one each time sugar is checked Blood Glucose Monitoring Suppl (ONE TOUCH ULTRA 2) w/Device kit Use to test blood sugar one time daily 1 kit 0 D3 Super Strength 50 MCG (2000 UT) capsule TAKE 1 CAPSULE BY MOUTH EVERY MORNING 90 capsule 3 docusate sodium (Colace) 100 MG capsule TAKE 1 CAPSULE BY MOUTH TWICE DAILY NEEDED FOR CONSTIPATION 180 capsule 3 glucose blood (OneTouch Ultra) test strip Use to check BG 1-2 times daily 100 each 11 ibuprofen 600 MG tablet Take 1 tablet (600 mg) by mouth every 6 (six) hours if needed for mild painfor up to 20 doses. 20 tablet 0 lisinopril 20 MG tablet TAKE 1 TABLET BY MOUTH EVERY DAY 90 tablet 3 Multiple Vitamins-Iron (Daily Ysabel Multivitamin/Iron) tablet Take 1 tablet by mouth daily 90 tablet3 omega-3 acid ethyl esters (Lovaza) 1 g capsule Take 1 capsule (1 g) by mouth 2 times daily. 180 capsule 3 OneTouch Delica Lancets 33G misc Use to check BG 1-2 times daily 100 each 11 polyvinyl alcohol (Liquifilm Tears) 1.4 % ophthalmic solution one drop in both eyes 4 times a day pseudoephedrine (Sudafed) 30 MG tablet Take 1 tablet by mouth every 12 (twelve) hours. rosuvastatin (Crestor) 20 MG tablet Take 1 tablet (20 mg) by mouth Once per day. 90 tablet 3 No current facility-administered medications for this visit. Past Medical History: Diagnosis Date COVID-19 02/2022 Diabetes mellitus (CMS/HCC) HLD (hyperlipidemia) Hypertension Past Surgical History: Procedure Laterality Date COLONOSCOPY W/ POLYPECTOMY 2008 HYSTERECTOMY 1998 Family History Problem Relation Name Age of Onset Diabetes Mother Cirrhosis Father Breast cancer Sister Glaucoma Sister Diabetes Brother Social History Socioeconomic History Marital status: Spouse name: Not on file Number of children: Not on file Years of education: Not on file Highest education level: Not on file Occupational History Not on file Tobacco Use Smoking status: Never Smokeless tobacco: Never Vaping Use Vaping status: Never Used Substance and Sexual Activity Alcohol use: Never Drug use: Never Sexual activity: Not on file Other Topics Concern Not on file Social History Narrative Living situation: living with . They have been together for 50 years. Has grandchildren and great-grandchildren in the area who visit. Diet/exercise: enjoys walking, especially in the warmer weather Substance use: -alcohol- none reported -tobacco - none reported -opioids - none reported Mental health: denies SI/HI/thoughts of self harm Social Drivers of Health Food Insecurity: Low Risk (11/03/2023) Food Insecurity Within the past 12 months, you worried that your food would run out before you got money to buy more:: Never True Within the past 12 months,the food you bought just didn't last and you didn't have enough money to get more: : Never True Transportation Needs: Low Risk (11/03/2023) Transportation In the past 12 months, has lack of transportation kept you from medical appts, meetings, work or from getting things needed for daily living? : No Intimate Partner Violence: Not on file Housing Stability: Low Risk (11/03/2023) Housing Stability What is your housing situation today?: I have housing Think about the place you live. Do you have problems with any of the following? : None of the above No Known Allergies ROS Positive for: Eyes Negative for: Constitutional, Gastrointestinal, Neurological, Skin, Genitourinary, Musculoskeletal,HENT, Endocrine, Cardiovascular, Respiratory, Psychiatric, Allergic/Imm, Heme/Lymph Last edited by Esperanza Campa, MARIPOSA on 07/14/2024 10:12 AM. Base Eye Exam Visual Acuity (Snellen - Linear) Right Left Dist cc 20/40 -2 20/30 -2 Correction: Glasses Tonometry ([facility] , 10:28 AM) Right Left Pressure 16 16 Pupils Pupils APD Right PERRL None Left PERRL None Visual Thomason (Counting fingers) Left Right Full Full Extraocular Movement Right Left Full Full Neuro/Psych Oriented x3: Yes Mood/Affect: Normal Dilation Both eyes: 1.0% Tropicamide @ 10:28 AM Slit Lamp and Fundus Exam External Exam Right Left External Nickel-sized black lesion right forehead/anabaptist - longstanding Normal Slit Lamp Exam Right Left Lids/Lashes Normal Normal Conjunctiva/Sclera White and quiet White and quiet Cornea Clear Clear Anterior Chamber Deep and quiet Deep and quiet Iris Flat, no NVI Flat, no NVI Lens 2+ Nuclear sclerosis, 2+ Cortical cataract 2+ Nuclear sclerosis, 2+ Cortical cataract Fundus Exam Right Left Vitreous Clear Clear Disc India Hook and Distinct, No NVD India Hook and Distinct, No NVD C/D Ratio Vertical 0.3 0.4 C/D Ratio Horizontal 0.3 0.4 Macula Flat and Intact, no CSME Flat and Intact, no CSME Vessels Normal Normal Periphery Reticular degeneration 360 degrees in the periphery, No Holes/Breaks/Tears 360 degrees, no NVE Reticular degeneration 360 degrees in the periphery, No Holes/Breaks/Tears 360 degrees, no NVE Refraction Wearing Rx Sphere Cylinder Add Right +0.75 Sphere +2.50 Left +0.75 Sphere +2.50 Manifest Refraction (Subjective) Sphere Cylinder [place] Dist VA Add Right +1.00 -1.25 035 20/30 -1 +2.50 Left +0.50 Sphere 20/30 +2.50 Dist VA Both: 20/30-2 Near VA Both: 20/30 Final Rx Sphere Cylinder [place] Dist VA Add Right +1.00 -1.25 035 20/30 +2.50 Left +0.50 Sphere 20/30 +2.50 Expiration Date: 07/14/2025 Assessment/plan: Diagnoses and all orders for this visit: Diabetes type 2, no ocular involvement ([facility]) There is no diabetic retinopathy or macular edema present today in either eye. The patient was educated on the exam findings. The patient was educated to continue controlling blood glucose levels through diet, exercise and medication. The patient was educated on potential complications of diabetic retinopathy, including blindness, if left untreated. The patient was educated on the importance of an annual diabetic eye exam to monitor for diabetic retinopathy. A summary of today's dilated eye exam results will be communicated to the patient's PCP through the shared patient problem list in [facility].Will monitor in 1 year. Combined forms of age-related cataract of both eyes Visually significant in both eyes. BCVA is 20/30- in each eye. The patient was educated that cataract surgery is recommended to improve her vision. She was educated on the progressive nature of cataracts. She deferred a referral for surgery at this time, and would like to be monitored in a year instead. She was educated to call if she changes her mind and would like a referral. 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 The patient has reticular degeneration in the periphery of both eyes. This is a benign finding, but that it is possible for the retina to thin enough over time to break/tear. There were no tears/breaks in the retina today. She was educated to [facility] with any sudden onset of flashes of lights, floaters, or decreased vision. Otherwise, will monitor at her next exam. Lesion of skin of face The patient has a uniformly darkly pigmented lesion, about the size of a nickel, on the right side of her forehead/anabaptist. It is stable to previous exam findings. She states it has been present sincechildhood and has not changed in size or color. She states it has been checked by her PCP and dermatology in the past. Will monitor at her next exam. Presbyopia Glasses prescription updated and given. The patient was educated her glasses will not fully correcther vision as most of her blur is due to cataracts. Will monitor at the patient's next full eye exam. Esperanza Campa, OD 07/14/2024, 11:25 AM Tower Erector Source: ___ None _X__ Bilingual Staff (Kayce Zhong) ___ Qualified Staff Manager Sports ___ Telephone Tower Erector; ID# ___ Tower Erector brought by patient (family member, friend, STUDENT SERVICES VICE PRESIDENT, etc) ___ In person or nurse manager ___ Ipad Tower Erector; ID#: Language Spoken During Exam: __Spanish documented in this encounter Plan of Treatment Upcoming Encounters Date Type Department Care Team (Late st Contact Info) Description 11/01/2024 10:30 AM EDT Office Visit [facility] MEDICINE [address] [place] [address] Yoselin Hsieh FNP [address] [place] [address] documented as of this encounter Visit Diagnoses Diagnosis Diabetes type 2, no ocular involvement (CMS/[facility])- Primary 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
--- OUTSIDE RECORDS SUMMARY | 2024-07-27 12:33 | XMS_ITS | Encounter Summary ---
Author Organization [employer] Address [address] [facility] [address] [place] [address] Care Team Providers Care Manager Pricing Name Role Phone МарияYoselin KARI Primary Care Provider [phone] Nathanael Andrade MD Unavailable Esperanza Campa OD Unavailable [phone] Reason for Visit * Reason Onset Date Comments Chart Prep 07/24/2024 Encounter Details Date Type Department Care Team (Late st Contact Info) Description 07/24/2024 Telephone [facility] MED & PEDS [address] [place] [address] Eze Walker [place] Chart Prep Social History Tobacco Use Types Packs/Day Years [...] Telephone Encounter - Eze Taveras [place] - 07/24/2024 4:20 PM EST Chart Prep Labs: done Images: done Vaccines due: yes Referrals: n/a Screenings: Foot Exam, Urine Protein, Lipid Panel Overdue care gaps: A1C, Glucose documented in this encounter Plan of Treatment Upcoming Encounters Date Type Department Care Team (Late st Contact Info) Description 11/01/2024 10:30 AM EDT Office Visit [facility] MEDICINE [address] [place] [address] Yoselin Hsieh FNP [address] [place] [address] documented as of this encounter Visit Diagnoses Not on filedocumented in this encounter Additional Health Concerns Assessment Noted Time PHQ-9 Depression Total Score: 3 04/09/20 24 8:37 PM EST documented as of this encounter Care Teams Manager Pricing Relationship Specialty Start Date End Date Yoselin Hsieh FNP [address] [place] [address] PCP - General Family Medicine 01/13/22 Nathanael Andrade MD [address] [place] [address] 3rd [place] [address] Cardiology 04/09/24 Esperanza Campa OD [address] [place] [id number] Optometry 04/09/24 documented as of this encounter
--- OUTSIDE RECORDS SUMMARY | 2024-07-27 12:33 | XMS_ITS | Encounter Summary ---
Author Organization [employer] Address [address] [place] [address] Care Team Providers Care Kiln Worker Name Role Phone Yoselin Hsieh Primary Care Provider [phone] Nathanael Andrade MD Unavailable [phone] Esperanza Campa OD Unavailable [phone] Encounter Details Date Type Department Care Team (Late st Contact Info) Description 07/26/2024 9:45 AM EST Office Visit [facility] [address] [place] [address] Yoselin Hsieh FNP [address] [place], [place] [id number] Type 2 diabetes mellitus without complication, without long-term current use of insulin (CMS/[facility]) (Primary Dx); Vitamin D deficiency; Routine health maintenance Social History Tobacco Use Types Packs/Day Years [...] AM EDT documented as of this encounter Last Filed Vital Signs Vital Sign Reading Time Taken Comments Blood Pressure 140/86 07/26/2024 9:53 AM EST Pulse 76 07/26/2024 9:53 AM EST Temperature 36.2 ??C (97.1 ??F) 07/26/2024 9:53 AM ES T Respiratory Rate 20 07/26/2024 9:53 AM EST Oxygen Saturation - - Inhaled Oxygen Concentration - - Weight 73.1 kg (161 lb 2 oz) 07/26/2024 9:53 AM EST Height 157.5 cm (5' 2 ) 07/26/2024 9:53 AM EST Body Mass Index 29.47 07/26/2024 9:53 AM EST documented in this encounter Plan of Treatment Upcoming Encounters Date Type Department Care Team (Late st Contact Info) Description 11/01/2024 10:30 AM EDT Office Visit [facility] [address] [place], [place] [id number] Yoselin Hsieh FNP [address] [place] [address] Pending Results Name Type Priority Associated Diagnoses Date /Time Lipid Panel, Standard Lab Routine Type 2 diabetes mellitus without complication, without long-term current use of insulin ([facility]) 07/27/2024 10:32 AM EST Comprehensive Metabolic Panel Lab Routine Type 2 diabetes mellitus without complication, without long-term current use of insulin ([facility]/HCC) 07/27/2024 10:32 AM EST Iron And Total Iron Binding Capacity Lab Routine Routine health maintenance 07/27/2024 10:32 AM EST Scheduled Orders Name Type Priority Associated Diagnoses Orde r Schedule Vitamin D, 25-Hydroxy, Total, Immunoassay Lab Routine Vitamin D deficiency Expected: 07/26/2024 (Approximate), Expires: 07/26/2025 Albumin, Random Urine W/Creatinine Lab Routine Type 2 diabetes mellitus without complication, without long-term current use of insulin (CMS/HCC) Expected: 07/26/2024 (Approximate), Expires: 07/26/2025 TSH with Reflex to Free T4 Lab Routine Routine health maintenance Expected: 07/26/2024 (Approximate), Expires: 07/26/2025 Vitamin B12/Folate, Serum Panel Lab Routine Type 2 diabetes mellitus without complication, without long-term current use of insulin ([facility]/HCC) Expected: 07/26/2024, Expires: 07/26/2025 Ferritin Lab Routine Routine health maintenance Expected: 07/26/2024, Expires: 07/26/2025 documented as of this encounter Procedures Procedure Name Priority Date/Time Associated Diagnosis Comments CBC WITH AUTO DIFFERENTIAL Routine 07/27/2024 10:32 AM EST Routine health maintenance IRON AND TOTAL IRON BINDING CAPACITY Routine 07/27/2024 10:32 AM EST Routine health maintenance LIPID PANEL, STANDARD Routine 07/27/2024 10:32 AM EST Type 2 diabetes mellitus without complication, without long-term current use of insulin ([facility]) COMPREHENSIVE METABOLIC PANEL Routine 07/27/2024 10:32 AM EST Type 2 diabetes mellitus without complication, without long-term current use of insulin ([facility]) POCT GLYCATED HEMOGLOBIN, TOTAL Routine 07/26/2024 10:37 AM EST Type 2 diabetes mellitus without complication, without long-term current use of insulin ([facility]) POCT GLUCOSE Routine 07/26/2024 10:37 AM EST Type 2 diabetes mellitus without complication, without long-term current use of insulin ([facility]) documented in this encounter Results * (ABNORMAL) CBC auto differential (07/27/2024 10:32 AM EST) White Blood Count 5.9 4.8 - 10.8 X10*3/uL [facility] Red Blood Count 4.67 4.20 - 5.50 X10*6/uL [facility] Hemoglobin 13.2 12.0 - 16.0 g/dl [facility] Hematocrit 40.6 37.0 - 47.0 % [facility] Mean Corpuscular Volume 86.9 80.0 - 98.0 fL [facility] Mean Corpuscular Hemoglobin 28.3 27.0 - 33.0 pg [facility] Mean Corpuscular HGB Conc 32.5 31.0 - 35.0 g/dl [facility] Red Cell Distribution Width 13.3 11.0 - 16.0 % [facility] Platelet Count 263 160 - 400 X10*3/uL [facility] Mean Platelet Volume 10.6 9.4 - 12.3 fL [facility] Neutrophils Percent Auto 62.3 45 - 73 % [facility] Imm Gran Pct Auto 0.5(H) 0.0 - 0.4 % [facility] Lymphocytes Percent Auto 29.3 20 - 40 % [facility] Monocytes Percent Auto 6.2 2 - 11 % [facility] Eosinophils Percent Auto 1.2 0 - 4 % [facility] Basophils Percent Auto 0.5 0 - 2 % [facility] NRBC Pct Auto 0.0 0.0 - 0.2 /100WBC [facility] Neutrophils Absolute Auto 3.7 2.0 - 8.3 x10*3/uL [facility] Imm Gran Abs Auto 0.03 0.00 - 0.03 X10*3/uL [facility] Lymphocytes Absolute Auto 1.7 1.2 - 4.9 X10*3/uL [facility] Monocytes Absolute Auto 0.4 0.1 - 1.2 X10*3/uL [facility] Eosinophils Absolute Auto 0.1 0.0 - 0.4 X10*3/uL [facility] Basophils Absolute Auto 0.0 0.0 - 0.2 X10*3/uL [facility] NRBC Abs Auto 0.000 0.0 - 0.012 X10*3/uL [facility] Blood Venous blood specimen / Unknown 07/27/2024 10:32 AM EST 07/27/2024 11:51 AM EST Yoselin PIERCE LAB BLOOD ORDERABLES Final Res ult [facility] [address] [place] [phone] * (ABNORMAL) POCT HGB A1C (07/26/2024 10:37 AM EST) Hemoglobin A1C 6.6(A) 4.0 - 6.0 % QC Media Lot # [id number] Lot# Expiration Date Blood 07/26/2024 10:3 7 AM EST Yoselin PIERCE POINT OF CARE TEST ENTER/EDIT ORDERABLES Final Result * POCT Glucose (07/26/2024 10:37 AM EST) Glucose Blood, POC 166 60 - 200 mg/dL Comment:Random QC Media Lot # [id number] Lot# Expiration Date Blood Capillary blood specimen / Unknown 07/26/2024 10:37 AM EST Yoselin PIERCE POINT OF CARE TEST ENTER/EDIT ORDERABLES Final Result documented in this encounter Visit Diagnoses Diagnosis Type 2 diabetes mellitus without complication, without long-term current use of insulin ([facility])- Primary Vitamin D deficiency Routine health maintenance Unspecified examination documented in this encounter Additional Health Concerns Assessment Noted Time PHQ-9 Depression Total Score: 3 04/09/20 24 8:37 PM EST documented as of this encounter Care Teams Kiln Worker Relationship Specialty Start Date End Date Yoselin Hsieh FNP [address] [place] [address] PCP - General Family Medicine 01/13/22 Nathanael Andrade MD [address] [place] [address] [address] [place] [address] Cardiology 04/09/24 Esperanza Campa OD [address] [place] [address] Optometry 04/09/24 documented as of this encounter
--- OUTSIDE RECORDS SUMMARY | 2024-07-27 12:33 | XMS_ITS | Encounter Summary ---
Author Organization [employer] Address [address] [place] [address] Care Team Providers Care Playground Supervisor Name Role Phone Yoselin Hsieh Primary Care Provider [phone] Nathanael Andrade MD Unavailable Esperanza Campa OD Unavailable Reason for Visit * Reason Onset Date Comments PCP change 02/12/2023 Encounter Details Date Type Department Care Team (Late st Contact Info) Description 02/12/2023 Telephone [facility] [address] [place] [address] Yoselin Hsieh FNP [address] [place], [place] [phone] PCP change Social History Tobacco Use Types Packs/Day Years Used Date Smoking Tobacco: Never Smokeless Tobacco: Never Alcohol Use Standard Drinks/Week Comments Never 0 (1 standard drink = 0.6 oz pur e alcohol) Comments Unknown Sex and Gender Information Value Date Recorded Sex Assigned at Female 03/23/2022 10:16 AM EDT Legal Sex Female 10:16 AM EDT Gender Identity Female 03/23/2022 10:16 AM EDT Sexual Orientation Straight 03/23/2022 10 :16 AM EDT documented as of this encounter Miscellaneous Notes * Telephone Encounter - Ade Coreas - 02/12/2023 2:14 PM EDT Tc from patient requesting to have a different PCP, due to KARI Hsieh's change in schedule locations. Patient will keep next appt on 02/22/23. documented in this encounter Plan of Treatment Upcoming Encounters Date Type Department Care Team (Late st Contact Info) Description 11/01/2024 10:30 AM EDT Office Visit [facility] [address] [place] [address] Yoselin Hsieh FNP [address] [place] [address] documented as of this encounter Visit Diagnoses Not on filedocumented in this encounter Care Teams Playground Supervisor Relationship Specialty Start Date End Date Yoselin Hsieh FNP [address] [place] [address] PCP - General Family Medicine 01/13/22 Nathanael Andrade MD [address] [place] [address] Drive 3rd [place] [address] Cardiology 04/09/24 Esperanza Campa OD [address] [place] [address] Optometry 04/09/24 documented as of this encounter
--- OUTSIDE RECORDS SUMMARY | 2024-07-27 12:33 | XMS_ITS | Encounter Summary ---
Author Organization [employer] Address [address] [place] [address] Care Team Providers Care Maritime Engineer Name Role Phone LoveYoselin ruff KARI Primary Care Provider [phone] Nathanael Andrade MD Unavailable [phone] Esperanza Campa OD Unavailable [phone] Encounter Details Date Type Department Care Team (Late st Contact Info) Description 04/09/2023 Abstract [facility] [address] [place] [address] Gracy Scott Social History Tobacco Use Types Packs/Day Years Used Date Smoking Tobacco: Never Smokeless Tobacco: Never Alcohol Use Standard Drinks/Week Comments Never 0 (1 standard drink = 0.6 oz pur e alcohol) Depression Answer Date Recorded Patient Health Questionnaire-9 Score 7 02/22/2023 Housing Stability Answer Date Recorded What is your housing situation today? I have lakeisha meza 04/03/[address] you li ve. Do you have problems with any of the following? None of the above 04/03/2023 Food Insecurity Answer Date Recorded Within the past 12 months, y ou worried that your food would run out before you got money to buy more: Never True 04/03/2023 Within the past 12 months,th e food you bought just didn't last and you didn't have enough money to get more: Never True 03/2023 Transportation Answer Date Recorded In the past 12 months, has l ack of transportation kept you from medical appts, meetings, work or from getting things needed for daily living? No 04/03/2023 Utilities Answer Date Recorded In the past 12 months, has t he [employer], gas, oil or water company threatened to shut off services in your home? No 04/03/2023 Depression Answer Date Recorded Patient Health Questionnaire-2 Score 2 02/22/2023 Comments Unknown Sex and Gender Information Value Date Recorded Sex Assigned at Female 03/23/2022 10:16 AM EDT Legal Sex Female 10:16 AM EDT Gender Identity Female 03/23/2022 10:16 AM EDT Sexual Orientation Straight 03/23/2022 10 :16 AM EDT documented as of this encounter Plan of Treatment Upcoming Encounters Date Type Department Care Team (Late st Contact Info) Description 11/01/2024 10:30 AM EDT Office Visit [facility] [address] [place] [address] Yoselin Hsieh FNP [address] [place] [address] documented as of this encounter Procedures Procedure Name Priority Date/Time Associated Diagnosis Comments COLONOSCOPY Routine 09/20/2017 documented in this encounter Results * Hm Colonoscopy (09/20/2017) Colonoscopy Normal Normal Narrative Gracy Scott - 09/20/2017 Repeat in 10 years us Historical Provider HEALTH MAINTENANCE Final Result documented in this encounter Visit Diagnoses Not on filedocumented in this encounter Additional Health Concerns Assessment Noted Time PHQ-9 Depression Total Score: 7 02/23/20 23 1:28 PM EDT documented as of this encounter Care Teams Maritime Engineer Relationship Specialty Start Date End Date Yoselin Hsieh FNP [address] [place] [address] PCP - General Family Medicine 01/13/22 Nathanael Andrade MD [address] [place] [address] Cardiology 04/09/24 Esperanza Campa OD [address] [place] [address] Optometry 04/09/24 documented as of this encounter
--- OUTSIDE RECORDS SUMMARY | 2024-07-27 12:33 | XMS_ITS | Clinical Summary ---
Author Organization [employer] Address [address] [facility] [address] [place] [address] Care Team Providers Care Security Attendant Name Role Phone Yoselin Hsieh Primary Care Provider [phone] Nathanael Andrade MD Unavailable [phone] Esperanza Campa OD Unavailable Allergies No known active allergies Medications polyvinyl alcohol (Liquifilm Tears) 1.4 % ophthalmic solution one drop in both eyes 4 times a day 08/20/19 21 Active pseudoephedrine (Sudafed) 30 MG tablet Take 1 tablet by mouth every 12 (twelve) hours. 03/06/20 22 Active Alcohol Swabs (Alcohol Prep) pads Use one each time sugar is checked Active docusate sodium (Colace) 100 MG capsule TAKE 1 CAPSULE BY MOUTH TWICE DAILY NEEDED FOR CONSTIPATION 180 capsule 3 09/03/19 24 Active D3 Super Strength 50 MCG (2000 UT) capsule TAKE 1 CAPSULE BY MOUTH EVERY MORNING 90 capsule 3 09/03/19 24 Active ibuprofen 600 MG tablet Take 1 tablet (600 mg) by mouth every 6 (six) hours if needed for mild pain for up to 20 doses. 20 tablet 09/01/19 24 Active lisinopril 20 MG tablet TAKE 1 TABLET BY MOUTH EVERY DAY 90 tablet 3 10/01/19 24 Active acetaminophen (Tylenol) 500 MG tablet Take 1 tablet (500 mg) by mouth every 6 (six) hours if needed for mild pain for up to 20 doses. 20 tablet 10/08/19 24 Active omega-3 acid ethyl esters (Lovaza) 1 g capsuleIndications :Mixed hyperlipidemia Take 1 capsule (1 g) by mouth 2 times daily. 180 capsule 3 11/03/19 24 025 Active rosuvastatin (Crestor) 20 MG tabletIndications: Mixed hyperlipidemia Take 1 tablet (20 mg) by mouth Once per day. 90 tablet 3 11/03/19 24 Active Multiple Vitamins-Iron (Daily Ysabel Multivitamin/Iron) tablet Take 1 tablet by mouth daily 90 tablet 3 11/04/19 24 Active Blood Glucose Monitoring Suppl (ONE TOUCH ULTRA 2) w/Device kitIndications:Typ e 2 diabetes mellitus without complication, without long-term current use of insulin (CMS/HCC) Use to test blood sugar one time daily 1 kit 12/27/19 24 Active glucose blood (OneTouch Ultra) test stripIndications:T ype 2 diabetes mellitus without complication, without long-term current use of insulin (CMS/HCC) Use to check BG 1-2 times daily 100 each 11 12/28/19 24 Active OneTouch Delica Lancets 33G miscIndications:Ty pe 2 diabetes mellitus without complication, without long-term current use of insulin (CMS/HCC) Use to check BG 1-2 times daily 100 each 11 12/28/19 24 Active Active Problems Problem Noted Date Diagnosed Date Dental abscess 09/01/2023 SK (seborrheic keratosis) 02/23/2023 Overview (02/23/2023): -Right side of face: [id number] hyperpigmented plaque with stuck on appearance. Minor fissures noted -Suspected SK, which correlates with eval from [facility] Derm team in September 2022 -Reassurance provided, follow up with any changes or concerns Routine health maintenance 08/23/2022 Overview (04/09/2024): Mammo: BI-RADs 1 in August 2023 Cervical CA: N/A Colon CA: reports normal colonoscopy approx 5 years ago. Pt will attempt to follow up with office. Optometry: [facility] 01/20/23 - no diabetic retinopathy or macular edema. Next scheduled: Jun 2024 Dental: established with dental home BMD: Normal DEXA August 2021 Assessment & Plan (02/23/2023 3:16 PM EDT): Influenza vaccine administered today Nonrheumatic aortic valve stenosis 06/11/2017 Assessment & Plan (04/09/2024 8:31 PM EST): Followed by [facility] - Dr Andrade Last consult appt in October 2023, with plan for 1 year follow up In the most recent echocardiogram, mean gradient across aortic valve was 14 mm Hg. Calculated valve area of 1.2 sq cm. Overall, thought to be moderate aortic stenosis. Mild aortic regurgitation. Ascending aortic size was 3.7 cm. Overall, stable. We will recheck this in 1 year. Assessment & Plan (07/01/2023 7:24 AM EST): ?? Followed by [facility] - Dr Andrade ?? Last consult appt in October 2022, with plan for 1 year follow up In the most recent echocardiogram, mean gradient across aortic valve was 14 mm Hg. Calculated valve area of 1.2 sq cm. Overall, thought to be moderate aortic stenosis. Mild aortic regurgitation. Ascending aortic size was 3.7 cm. Overall, stable. We will recheck this in 1 year. Assessment & Plan (02/23/2023 3:19 PM EDT): ?? Followed by [facility] - Dr Andrade ?? Last consult appt in October 2022, with plan for 1 year follow up In the most recent echocardiogram, mean gradient across aortic valve was 14 mm Hg. Calculated valve area of 1.2 sq cm. Overall, thought to be moderate aortic stenosis. Mild aortic regurgitation. Ascending aortic size was 3.7 cm. Overall, stable. We will recheck this in 1 year. Essential hypertension 04/30/2015 Overview (02/23/2023): -BP goal < 140/90 mmHg -Continues with lisinopril 20mg daily -Denies any chest pain, GARCIA, palpitations, SOB, dizziness, blurry vision, dry cough -Follows with [facility] Dr. Andrade -Encourage lifestyle interventions including low salt diet and routine movement/physical activity as able Assessment & Plan (11/04/2023 10:24 AM EDT): Mild elevation of BP in office, but reports that readings are well controlled at home Assessment & Plan (07/01/2023 7:24 AM EST): Mild elevation of BP in office, but reports that readings are well controlled at home Assessment & Plan (02/23/2023 3:20 PM EDT): Mild elevation of BP in office, but reports that readings are well controlled at home Hyperlipidemia 04/30/2015 Overview (11/04/2023): Lab Results Component Value Date CHOL 213 (H) 07/05/2023 TRIG 166 (H) 07/05/2023 HDL 52 07/05/2023 LDLCHOLCAL 128 (H) 07/05/2023 -Continue rosuvastatin 20mg daily (will switch from PM to AM dosing to assist with adherence) -Pt interested in trial of omega-3 to assist with TG levels. Shared decision making to start Lovaza 1g BID. Reviewed med use and SE Obesity 04/30/2015 Type 2 diabetes mellitus 04/30/2015 Overview (07/26/2024): Well controlled off medications! Previously tx with metformin 500mg daily Lab Results Component Value Date HGBA1C 6.3 (A) 11/03/2023 HGBA1C 6.3 (A) 06/30/2023 HGBA1C 6.3 (A) 02/22/2023 HGBA1C 6.2 (A) 06/17/2022 HGBA1C 5.7 (H) 01/19/2022 HGBA1C 6.3 (H) 07/25/2021 HGBA1C 6.3 (H) 07/19/2020 A1c: (Target </= 8.0%) = well controlled Microalbumin/Cr:Alb: WNL Jun 2023 Lipids: LDL 128, TC 213, HDL 52, TG 166 in Jun 2023 Eye exam: 01/20/23 negative for diabetic retinopathy or macular edema bilaterally Monofilament: WNL jun 2023 Dental: up to date PNA (PPSV, then PCV 13): up to date TDap/Td: due HYACITNH/ARB: yes Statin: yes Assessment & Plan (04/09/2024 8:36 PM EST): Cont w/ lifestyle interventions Assessment & Plan (11/04/2023 10:23 AM EDT): Cont w/ lifestyle interventions Vitamin D deficiency 04/30/2015 Assessment & Plan (07/01/2023 7:25 AM EST): -Continues with Vit D supplement - 2000 units/day -Recheck Lab: Vit D Encounters Date Type Department Care Team Description 07/26/2024 9:45 AM EST Office Visit [facility] MEDICINE [address] [place] [address] Yoselin Hsieh FNP Type 2 diabetes mellitus without complication, without long-term current use of insulin (CMS/HCC) (Primary Dx); Vitamin D deficiency; Routine health maintenance 07/26/2024 Travel 07/24/2024 Telephone [facility] [address] [place] [address] Eze Walker MA Chart Prep 07/14/2024 10:00 AM EST Office Visit [facility] OPTOMETRY [address] [place] [address] Lokesh, Esperanza, OD Diabetes type 2, no ocular involvement (CMS/HCC) (Primary Dx); Combined forms of age-related cataract of both eyes; 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 purified surface antigen ) 02/03/2013,03/30/2012 Moderna Covid-19 Vaccine 12+ 10/02/2020,09/05/19 21 Pneumococcal Conjugate PCV 13 12/18/2015 Pneumococcal Polysaccharide PPSV23 01/11/2017 TD (adult), 2 Lf tetanus tox oid, preservative free, adsorbed 04/18/2001 Td (adult), 5 Lf tetanus tox oid, preservative free, adsorbed 08/08/2012 Tdap 08/08/2012 Zoster, live 04/30/2015 Family History Medical History Relation Name Comments Diabetes Brother Cirrhosis Father Diabetes Mother Breast cancer Sister Glaucoma Sister Relation Name Status Comments Brother Father Mother Sister Social History Tobacco Use Types Packs/Day Years Used Date Smoking Tobacco: Never Smokeless Tobacco: Never Tobacco Cessation:Counseling Given: Not Answered Alcohol Use Standard Drinks/Week Comments Never 0 [...] Orientation Straight 03/23/2022 10 :16 AM EDT Last Filed Vital Signs Vital Sign Reading Time Taken Comments Blood Pressure 140/86 07/26/2024 9:53 AM EST Pulse 76 07/26/2024 9:53 AM EST Temperature 36.2 ??C (97.1 ??F) 07/26/2024 9:53 AM ES T Respiratory Rate 20 07/26/2024 9:53 AM EST Oxygen Saturation 99% 04/05/2024 10:45 AM EST Inhaled Oxygen Concentration - - Weight 73.1 kg (161 lb 2 oz) 07/26/2024 9:53 AM EST Height 157.5 cm (5' 2 ) 07/26/2024 9:53 AM EST Body Mass Index 29.47 07/26/2024 9:53 AM EST Plan of Treatment Upcoming Encounters Date Type Department Care Team (Late st Contact Info) Description 11/01/2024 10:30 AM EDT Office Visit [facility] MEDICINE [address] [place] [address] Yoselin Hsieh, KARI [address] [place] [address] Health Maintenance Due Date Last Done Comments CT Colonography 1949 FIT DNA/Cologuard 1950 FIT 1950 FOBT 1950 Sigmoidoscopy 1950 Dental Prophylaxis 04/05/2014 10/02/2013, 0 10/02/2013, 03/30/2013, Additional history exists Zoster Vaccines (2 of 3) 06/25/2015 04/30/2015 Dental Oral Exam 09/24/2017 03/26/2017, 08/2014, 10/02/2013, Additional history exists Dental X-Ray: Full Mouth 12/26/2017 12/25/2014 Dental X-Ray: Bitewings 03/27/2018 03/26/20 17, 12/25/2014, 03/30/2013 DTaP/Tdap/Td Vaccines (3 - Td or Tdap) 08/08/2022 08/08/2012, 08/08/2012, 04/18/2001 RSV Patients and Patients Aged 60 years or older (1 - 1-dose 75+ series) 02/03/2024 Diabetes: Foot Exam 06/30/2024 06/30/2023, 06/30/2023, 06/30/2023, Additional history exists Diabetes: Urine Protein Screening 07/05/2024 07/05/2023, 07/25/2021, 06/19/2019 Lipid Panel 07/05/2024 07/27/2024, 06/24, 01/19/2022, Additional history exists SDOH Screening 11/02/2024 11/03/2023 Influenza Vaccine (#1) 2024 , 03/15/2019, 03/21/2018, Additional history exists Postponed from 01/23/2024 (Patient Refused) Diabetes: Hemoglobin A1C 01/26/2025 025, 11/03/2023, 06/30/2023, Additional history exists Alcohol/Substance Use Screening 04/05/2025 04/05/2024 COVID-19 Vaccine ( season) 2025 10/02/2020, 09/04/2020 Postponed from 01/23/2024 (Patient Refused) Depression Screening 04/09/2025 04/09/2024, 04/09/20 24 Tobacco Screening 07/26/2025 07/26/2024 Eye Exam 07/14/2026 07/14/2024, 06/25, 07/14/2024, Additional history exists Colonoscopy 09/21/2027 09/20/2017 Colorectal Cancer Screening 09/21/2027 Pneumococcal Vaccine: 50+ Years Completed 01/11/2017, 12/18/2015 Hepatitis C Screening Completed 07/25/2021 HIB Vaccines Aged Out No longer eligi ble based on patient's age to complete this topic HPV Vaccines Aged Out No longer eligi ble based on patient's age to complete this topic Hepatitis A Vaccines Aged Out No long er eligible based on patient's age to complete this topic Hepatitis B Vaccines Aged Out No long er eligible based on patient's age to complete this topic IPV Vaccines Aged Out No longer eligi ble based on patient's age to complete this topic Meningococcal Vaccine Aged Out No rema gloria eligible based on patient's age to complete this topic RSV under 20 months Aged Out No longe r eligible based on patient's age to complete this topic Rotavirus Vaccines Aged Out No longer eligible based on patient's age to complete this topic Procedures Procedure Name Priority Date/Time Associated Diagnosis Comments IRON AND TOTAL IRON BINDING CAPACITY Routine 07/27/2024 10:32 AM EST Routine health maintenance CBC WITH AUTO DIFFERENTIAL Routine 07/27/2024 10:32 AM EST Routine health maintenance COMPREHENSIVE METABOLIC PANEL Routine 07/27/2024 10:32 AM EST Type 2 diabetes mellitus without complication, without long-term current use of insulin (CMS/HCC) LIPID PANEL, STANDARD Routine 07/27/2024 10:32 AM EST Type 2 diabetes mellitus without complication, without long-term current use of insulin (CMS/HCC) POCT GLYCATED HEMOGLOBIN, TOTAL Routine 07/26/2024 10:37 AM EST Type 2 diabetes mellitus without complication, without long-term current use of insulin (CMS/HCC) POCT GLUCOSE Routine 07/26/2024 10:37 AM EST Type 2 diabetes mellitus without complication, without long-term current use of insulin (CMS/HCC) ALBUMIN, RANDOM URINE W/CREATININE Routine 07/05/2023 1:30 PM EST Type 2 diabetes mellitus without complication, without long-term current use of insulin (CMS/HCC) ZZZ HISTORICAL HEPATITIS C AB W/REFL TO HCV RNA, QN, PCR Routine 07/25/2021 1:14 PM EST HM COLONOSCOPY Routine 09/20/2017 BITEWINGS - 4 RADIOGRAPHIC IMAGES Routine 03/26/2017 12:00 AM EDT PERIODIC ORAL EVALUATION - ESTABLISHED PATIENT Routine 03/26/2017 12:00 AM EDT INTRAORAL - COMPLETE SERIES OF RADIOGRAPHIC IMAGES Routine 12/25/2014 12:00 AM EDT PROPHYLAXIS - ADULT Routine 10/02/2013 1 2:00 AM EDT from Last 3 Months or Most Recently Relevant to Health Maintenance Results * (ABNORMAL) CBC auto differential (07/27/2024 10:32 AM EST) White Blood Count 5.9 4.8 - 10.8 X10*3/uL [facility] Red Blood Count 4.67 4.20 - 5.50 X10*6/uL [facility] Hemoglobin 13.2 12.0 - 16.0 g/dl [facility] Hematocrit 40.6 37.0 - 47.0 % [facility] Mean Corpuscular Volume 86.9 80.0 - 98.0 fL [facility] Mean Corpuscular Hemoglobin 28.3 27.0 - 33.0 pg [facility] Mean Corpuscular HGB Conc 32.5 31.0 - 35.0 g/dl [facility] Red Cell Distribution Width 13.3 11.0 - 16.0 % [facility] Platelet Count 263 160 - 400 X10*3/uL [facility] Mean Platelet Volume 10.6 9.4 - 12.3 fL [facility] Neutrophils Percent Auto 62.3 45 - 73 % [facility] Imm Gran Pct Auto 0.5(H) 0.0 - 0.4 % [facility] Lymphocytes Percent Auto 29.3 20 - 40 % [facility] Monocytes Percent Auto 6.2 2 - 11 % [facility] Eosinophils Percent Auto 1.2 0 - 4 % [facility] Basophils Percent Auto 0.5 0 - 2 % [facility] NRBC Pct Auto 0.0 0.0 - 0.2 /100WBC [facility] Neutrophils Absolute Auto 3.7 2.0 - 8.3 x10*3/uL [facility] Imm Gran Abs Auto 0.03 0.00 - 0.03 X10*3/uL [facility] Lymphocytes Absolute Auto 1.7 1.2 - 4.9 X10*3/uL [facility] Monocytes Absolute Auto 0.4 0.1 - 1.2 X10*3/uL [facility] Eosinophils Absolute Auto 0.1 0.0 - 0.4 X10*3/uL [facility] Basophils Absolute Auto 0.0 0.0 - 0.2 X10*3/uL [facility] NRBC Abs Auto 0.000 0.0 - 0.012 X10*3/uL [facility] Blood Venous blood specimen / Unknown 07/27/2024 10:32 AM EST 07/27/2024 11:51 AM EST Yoselin Hsieh [facility] BLOOD ORDERABLES Final Res ult [facility] [address] [place] [address] [phone] * (ABNORMAL) POCT HGB A1C (07/26/2024 10:37 AM EST) Hemoglobin A1C 6.6(A) 4.0 - 6.0 % QC Media Lot # [id number] Lot# Expiration Date Blood 07/26/2024 10:3 7 AM EST Y[facility] POINT OF CARE TEST ENTER/EDIT ORDERABLES Final Result * POCT Glucose (07/26/2024 10:37 AM EST) Glucose Blood, POC 166 60 - 200 mg/dL Comment:Random QC Media Lot # [id number] Lot# Expiration Date Blood Capillary blood specimen / Unknown 07/26/2024 10:37 AM EST Yoselin [facility] POINT OF CARE TEST ENTER/EDIT ORDERABLES Final Result * Albumin, Random Urine W/Creatinine (07/05/2023 1:30 PM EST) Creatinine, Urine 199.83 mg/dL [facility] Microalbumin Urine 25.0 mg/L [facility] Microalbum Creatinine Ratio Ur 12.5 <30 ug/mg cr [facility] Comment:Albumin/Creatinine R atio Reference Ranges: Normal: < 30 ug/mg creatinine Microalbuminuria: 30 - 300 ug/mg creatinineClinical Albuminuria: > 300 ug/mg creatinine Urine (Urine, Random) 07/05/2023 1:30 PM EST 07/05/2023 4:13 PM EST us Yoselin Hsieh [employer] COORDINATOR LAB URINE ORDERABLES Final Res ult [facility] [address] [place] [address] [phone] * HEPATITIS C AB W/REFL TO HCV RNA, QN, PCR (07/25/2021 1:14 PM EST) Pathologist [facility] HEPATITIS C ANTIBODY NON-REACT PAMELA NON-REACT PAMELA [facility] INDEX 0.03 <1.00 [facility] Comment: ?? HCV antibody was non-reactive. There is no laboratory ?? evidence of HCV infection. ?? In most cases, no further action is required. However, if recent HCV exposure is suspected, a test for HCV RNA (test code 21296) is suggested. ?? For additional information please refer to http://education.[employer]/faq/ALA94f0 (This link is being provided for informational/ educational purposes only.) ?? 07/25/2021 1:14 PM EST us Kayce Faustin MANAGER CORPORATE HISTORICAL/NON ORDERABLE LABS F inal Result Performing Organization Address City/[facility] Co de Phone Number [facility] [address] [place] [address], * Colonoscopy (09/20/2017) Pathologist [facility] Colonoscopy Normal Normal Narrative SoniaGracy ding - 09/20/2017 Repeat in 10 years Historical Provider HEALTH MAINTENANCE Final Result from Last 3 Months or Most Recently Relevant to Health Maintenance Insurance [facility] [id number] DENTAL - [facility] Care Teams Security Attendant Relationship Specialty Start Date End Date Yoselin Hsieh FNP [address] [place] [address] PCP - General Family Medicine 01/13/22 Nathanael Andrade MD [address] Floor [place], [place] Cardiology 04/09/24 Esperanza Campa OD [address] [place] [phone] Optometry 04/09/24
--- OUTSIDE RECORDS SUMMARY | 2024-07-27 12:33 | XMS_ITS | Encounter Summary ---
Author Organization [employer] Address [address] [place] [address] Care Team Providers Care Monument Letterer Name Role Phone МарияYoselin KARI Primary Care Provider [phone] Nathanael Andrade MD Unavailable [phone] Esperanza Campa OD Unavailable [phone] Encounter Details Date Type Department Care Team (Latest Contact Info) Description 07/26/2024 Travel Social History Tobacco Use Types Packs/Day Years [...] 11/01/2024 10:30 AM EDT Office Visit [facility] MED[facility] [address] [place] [address] Yoselin Hsieh FNP [address] [place] [address] documented as of this encounter Visit Diagnoses Not on filedocumented in this encounter Additional Health Concerns Assessment Noted Time PHQ-9 Depression Total Score: 3 04/09/20 24 8:37 PM EST documented as of this encounter Care Teams Monument Letterer Relationship Specialty Start Date End Date Yoselin Hsieh FNP [address] [place] [address] PCP - General Family Medicine 01/13/22 Nathanael Andrade MD [address] [place] [address] 3rd [place] [address] Cardiology 04/09/24 Esperanza Campa OD [address] [place] [address] Optometry 04/09/24 documented as of this encounter
--- OUTSIDE RECORDS SUMMARY | 2024-07-27 12:33 | XMS_ITS | Encounter Summary ---
Author Organization [email or web address] Address [address] [place] [address] Care Team Providers Care Conductor Pullman Name Role Phone МарияYoselin KARI Primary Care Provider [phone] Nathaneal Andrade MD Unavailable [phone] Esperanza Campa OD Unavailable [phone] Encounter Details Date Type Department Care Team (Latest Contact Info) Description 07/14/2024 Travel Social History Tobacco Use Types Packs/Day [...] Description 11/01/2024 10:30 AM EDT Office Visit [facility] MEDICINE [address] [place] [address] Yoselin Hsieh FNP [address] [place] [address] documented as of this encounter Visit Diagnoses Not on filedocumented in this encounter Additional Health Concerns Assessment Noted Time PHQ-9 Depression Total Score: 3 04/09/20 24 8:37 PM EST documented as of this encounter Care Teams Conductor Pullman Relationship Specialty Start Date End Date Yoselin Hsieh FNP [address] [place] [address] PCP - General Family Medicine 01/13/22 Nathanael Andrade MD [address] [place] [address] 3rd [place] [address] Cardiology 04/09/24 Esperanza Campa OD [address] [place] [address] Optometry 04/09/24 documented as of this encounter
[2024-07-27 12:39] LABS: Creatinine Urine 137.44 mg/dL; Microalbum/Creatinine Ratio Ur 26.1 ug/mg cr (<30)
[2024-07-27 12:50] LABS: Ferritin 281 ng/mL (10-250); TSH reflex Free T4 0.86 uIU/mL (0.32-4.0); Vitamin D 25-OH Total 23.7 ng/mL (>30)
[2024-07-27 13:09] LABS: Folate 15.2 ng/mL (> or = 4.0); Vitamin B12 465 pg/mL (200-900)
== END 2024-07-27 10:30 | disposition home or self-care (01) ==
LOC: HO.HHCL 10:29
PROVIDERS: Visit Provider Registered Nurse
DX: Z00.00 Encounter for general adult medical examination without abnormal findings (principal); E11.9 Type 2 diabetes mellitus without complications; E55.9 Vitamin D deficiency, unspecified
CPT/HCPCS: 36415; 80053; 80061; 82043; 82306; 82570; 82607; 82728; 82746; 83540; 84443; 85025

== ENCOUNTER 2024-09-25 13:42 | Outpatient (REF) | payer MEDICARE, MEDICAID, SELFPAY ==
--- OUTSIDE RECORDS SUMMARY | 2024-09-25 15:15 | XMS_ITS | Clinical Summary ---
Author Organization [employer] Address [address] [facility] [address] [place] [address] Care Team Providers Care Operations Clerk Name Role Phone LoveYoselin ruff KARI Primary Care Provider [phone] Nathanael Andrade MD Unavailable [phone] Esperanza Campa OD Unavailable [phone] Allergies No known active allergies Medications polyvinyl alcohol (Liquifilm Tears) 1.4 % ophthalmic solution one drop in both eyes 4 times a day 021 Active pseudoephedrine (Sudafed) 30 MG tablet Take 1 tablet by mouth every 12 (twelve) hours. 022 Active Alcohol Swabs (Alcohol Prep) pads Use one each time sugar is checked Active docusate sodium (Colace) 100 MG capsule TAKE 1 CAPSULE BY MOUTH TWICE DAILY NEEDED FOR CONSTIPATION 180 capsule 3 024 Active ibuprofen 600 MG tablet Take 1 tablet (600 mg) by mouth every 6 (six) hours if needed for mild pain for up to 20 doses. 20 tablet 024 Active lisinopril 20 MG tablet TAKE 1 TABLET BY MOUTH EVERY DAY 90 tablet 3 024 Active acetaminophen (Tylenol) 500 MG tablet Take 1 tablet (500 mg) by mouth every 6 (six) hours if needed for mild pain for up to 20 doses. 20 tablet 024 Active omega-3 acid ethyl esters (Lovaza) 1 g capsuleIndication s:Mixed hyperlipidemia Take 1 capsule (1 g) by mouth 2 times daily. 180 capsule 3 024 2024 Active rosuvastatin (Crestor) 20 MG tabletIndications :Mixed hyperlipidemia Take 1 tablet (20 mg) by mouth Once per day. 90 tablet 3 024 Active Multiple Vitamins-Iron (Daily Ysabel Multivitamin/Iron ) tablet Take 1 tablet by mouth daily 90 tablet 3 024 Active Blood Glucose Monitoring Suppl (ONE TOUCH ULTRA 2) w/Device kitIndications:Ty pe 2 diabetes mellitus without complication, without long-term current use of insulin (CMS/[facility]) Use to test blood sugar one time daily 1 kit 024 Active glucose blood (OneTouch Ultra) test stripIndications: Type 2 diabetes mellitus without complication, without long-term current use of insulin (CMS/HCC) Use to check BG 1-2 times daily 100 each 11 024 Active OneTouch Delica Lancets 33G miscIndications:T ype 2 diabetes mellitus without complication, without long-term current use of insulin (CMS/HCC) Use to check BG 1-2 times daily 100 each 11 024 Active cholecalciferol (D3 Super Strength) 50 MCG (2000 UT) capsuleIndication s:Vitamin D deficiency Take 1 capsule (50 mcg) by mouth in the morning. 90 capsule 3 025 Active D3 Super Strength 50 MCG (2000 UT) capsule TAKE 1 CAPSULE BY MOUTH EVERY MORNING 90 capsule 3 024 2024 Discontinued(R eorder (will not trigger notification to Pharmacy)) Active Problems Problem Noted Date Diagnosed Date Dental abscess 09/01/2023 SK (seborrheic keratosis) 02/23/2023 Overview (02/23/2023): -Right side of face: [id number] hyperpigmented plaque with stuck on appearance. Minor fissures noted -Suspected SK, which correlates with eval from [facility] Derm team in September 2022 -Reassurance provided, follow up with any changes or concerns Routine health maintenance 08/23/2022 Overview (04/09/2024): Mammo: BI-RADs 1 in August 2023 Cervical CA: N/A Colon CA: reports normal colonoscopy approx 5 years ago. Pt will attempt to follow up with office. Optometry: MAR[facility] 01/20/23 - no diabetic retinopathy or macular edema. Next scheduled: Jun 2024 Dental: established with dental home BMD: Normal DEXA August 2021 Assessment & Plan (02/23/2023 3:16 PM EDT): Influenza vaccine administered today Nonrheumatic aortic valve stenosis 06/11/2017 Assessment & Plan (04/09/2024 8:31 PM EST): Followed by [facility] [place] [place] Cards Misael Andrade Last consult appt in October 2023, [...] (07/01/2023 7:24 AM EST): ?? Followed by [facility] [place] [place] Wally Andrade ?? Last consult appt in October [...] (02/23/2023 3:19 PM EDT): ?? Followed by [facility] [place] [place] Wally Andrade ?? Last consult appt in October [...] dizziness, blurry vision, dry cough -Follows with [facility] [place] [place] Cardiology Dr. Andrade -Encourage lifestyle interventions including low salt diet and routine movement/physical activity as able Assessment & Plan (07/27/2024 8:02 PM EST): Mild elevation of BP in office, but reports that readings are well controlled at home Assessment & Plan (11/04/2023 10:24 AM EDT): [...] 04/30/2015 Type 2 diabetes mellitus 04/30/2015 Overview (07/27/2024): Well controlled off medications! Previously tx with metformin 500mg daily Lab Results Component Value Date HGBA1C 6.6 (A) 07/26/2024 HGBA1C 6.3 (A) 11/03/2023 HGBA1C 6.3 (A) 06/30/2023 HGBA1C 6.3 (A) 02/22/2023 HGBA1C 6.2 (A) 06/17/2022 HGBA1C 5.7 (H) 01/19/2022 HGBA1C 6.3 (H) 07/25/2021 HGBA1C 6.3 (H) 07/19/2020 A1c: (Target </= 8.0%) = well controlled Microalbumin/Cr:Alb: WNL Jun 2023 Lipids: LDL 128, TC 213, HDL 52, TG 166 in Jun 2023 Eye exam: 07/14/2024 negative for diabetic retinopathy or macular edema bilaterally Monofilament: WNL jun 2023 Dental: up to date PNA (PPSV, then PCV 13): up to date TDap/Td: due HYACINTH/ARB: yes Statin: yes Assessment & Plan (07/27/2024 8:01 PM EST): Cont w/ lifestyle interventions Assessment & Plan (04/09/2024 8:36 PM EST): Cont w/ lifestyle interventions Assessment & Plan (11/04/2023 10:23 AM EDT): Cont w/ lifestyle interventions Vitamin D deficiency 04/30/2015 Assessment & Plan (07/01/2023 7:25 AM EST): -Continues with Vit D supplement - 2000 units/day -Recheck Lab: Vit D Encounters Date Type Department Care Team Description 09/15/2024 Refill [facility] [address] [place] [address] Yoselin Hsieh FNP Vitamin D deficiency 08/24/2024 Telephone [facility] MED [facility] PEDS [address] [place] [address] Yoselin Hsieh FNP Results 07/26/2024 9:45 AM EST Office Visit [facility] MEDICINE [address] [place] [address] Yoselin Hsieh FNP Type 2 diabetes mellitus without complication, without long-term current use of insulin ([facility]) (Primary Dx); Vitamin D deficiency; Routine health maintenance; Essential hypertension 07/26/2024 Travel 07/24/2024 Telephone [facility] MED & PEDS [address] [place] [address] Eze Walker MA Chart Prep 07/14/2024 10:00 AM EST Office Visit [facility] OPTOMETRY [address] [place] [address] Lokesh, Esperanza, OD Diabetes type 2, no ocular involvement (CMS/HCC) (Primary Dx); Combined forms of age-related cataract of both eyes; 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; Lesion of skin of face; Presbyopia 07/14/2024 Travel 07/12/2024 Telephone [facility] [address] [place], [place] [phone] Yoselin Hsieh FNP June recall from Last [...] Description 11/01/2024 10:30 AM EDT Office Visit [facility] MEDICINE [address] [place] [address] Yoselin Hsieh, KARI [address] [place] [address] Health Maintenance Due Date Last Done Comments [...] 06/30/2024 06/30/2023, 06/30/2023, 06/30/2023, Additional history exists SDOH Screening 11/02/2024 11/03/2023 Influenza Vaccine (#1) 2024 , 03/15/2019, 03/21/2018, Additional history exists Postponed from 01/23/2024 (Patient Refused) Diabetes: Hemoglobin A1C 01/26/2025 025, 11/03/2023, 06/30/2023, Additional history exists Alcohol/Substance Use Screening 04/05/2025 04/05/2024 COVID-19 Vaccine ( season) 2025 10/02/2020, 09/04/2020 Postponed from 01/23/2024 (Patient Refused) Depression Screening 04/09/2025 04/09/2024, 04/09/20 24 Tobacco Screening 07/26/2025 07/26/2024 Diabetes: Urine Protein Screening 07/27/2025 07/27/2024, 07/05/2023, 07/25/2021, Additional history exists Lipid Panel 07/27/2025 07/27/2024, 06/24, 01/19/2022, Additional history exists Eye Exam 07/14/2026 07/14/2024, 06/25, 07/14/2024, Additional [...] 07/27/2024 10:32 AM EST Routine health maintenance FERRITIN Routine 07/27/2024 10:32 AM EST Routine health maintenance VITAMIN B12/FOLATE, SERUM PANEL Routine 07/27/2024 10:32 AM EST Type 2 diabetes mellitus without complication, without long-term current use of insulin (CMS/HCC) CBC WITH AUTO DIFFERENTIAL Routine 07/27/2024 10:32 AM EST Routine health maintenance COMPREHENSIVE METABOLIC PANEL Routine 07/27/2024 10:32 AM EST Type 2 diabetes mellitus without complication, without long-term current use of insulin (CMS/HCC) TSH W/REFLEX TO FT4 Routine 07/27/2024 1 0:32 AM EST Routine health maintenance LIPID PANEL, STANDARD Routine 07/27/2024 10:32 AM EST Type 2 diabetes mellitus without complication, without long-term current use of insulin (CMS/HCC) ALBUMIN, RANDOM URINE W/CREATININE Routine 07/27/2024 10:32 AM EST Type 2 diabetes mellitus without complication, without long-term current use of insulin (CMS/HCC) VITAMIN D,25-OH,TOTAL,IA Routine 07/27/2024 10:32 AM EST Vitamin D deficiency POCT GLYCATED HEMOGLOBIN, TOTAL Routine 07/26/2024 10:37 [...] Relevant to Health Maintenance Results * (ABNORMAL) Vitamin D, 25-Hydroxy, Total, Immunoassay (07/27/2024 10:32 AM EST) Vitamin D 25-OH Total 23.7(L) >30 ng/mL [facility] Comment:Health Based Referen ce Values*< 20 ng/mL [id number] ng/mL Insufficient> 30 ng/mL Sufficient*Edwina BERGERON. N Engl J Med. 2007;357:266-280Care must be taken in interpreting Vitamin D results fromdifferent laboratories and methodologies. Published datademonstrated that results from patients undergoinghemodialysis may show a negative bias when tested withvarious automated 25-OH vitamin D assays when compared toLC-MS/MS.When testing samples from patients whose predominant form ofVitamin D is Vitamin D2, such as patients receiving VitaminD2 supplementation, results that are subtherapeutic shouldbe confirmed with another method such as LC-MS/MS. Blood Venous blood specimen / Unknown 07/27/2024 10:32 AM EST 07/27/2024 11:51 AM EST Yoselin Hsieh [facility] LAB BLOOD ORDERABLES Final Res ult Performing Organization Address [facility] de Phone Number [facility] [address] [place] [phone] * Vitamin B12/Folate, Serum Panel (07/27/2024 10:32 AM EST) Vitamin B12 465 200 - 900 pg/mL [facility] Comment:NORMAL 200-900 PG/ML INDETERMINATE 160-199 PG/ML DEFICIENT < 160 PG/ML Folate 15.2 > or = 4.0 ng/mL [facility] Comment:Reference Values:> o r = 4.0 ng/mL< 4.0 ng/mL suggests folate deficiency Methotrexate, aminopterin and folinic acid(leucovorin) are chemotherapeutic agents whose molecularstructures are similar to folate; therefore, the Architectfolate assay cannot be used for patients using these drugs. Blood Venous blood specimen / Unknown 07/27/2024 10:32 AM EST 07/27/2024 11:51 AM EST Yoselin Hsieh [facility] LAB BLOOD ORDERABLES Final Res ult Performing Organization Address [facility] de Phone Number [facility] [address] [place] [phone] * TSH with Reflex to Free T4 (07/27/2024 10:32 AM EST) TSH reflex Free T4 0.86 0.32 - 4.0 uIU/mL [facility] Blood 07/27/2024 10:3 2 AM EST 07/27/2024 11:51 AM EST us Yoselin Hsieh [employer] LAB BLOOD ORDERABLES Final Res ult Performing Organization Address [facility] Co de Phone Number [facility] [address] [place] [phone] * Albumin, Random Urine W/Creatinine (07/27/2024 10:32 AM EST) Creatinine, Urine 137.44 mg/dL [facility] Microalbumin Urine 36.0 mg/L [facility] Microalbum Creatinine Ratio Ur 26.1 <30 ug/mg cr [facility] Comment:Albumin/Creatinine R atio Reference Ranges: Normal: < 30 ug/mg creatinine Microalbuminuria: 30 - 300 ug/mg creatinineClinical Albuminuria: > 300 ug/mg creatinine Urine 07/27/2024 10:3 2 AM EST 07/27/2024 11:54 AM EST us Yoselin Hsieh [employer] O[employer]ATOR LAB URINE ORDERABLES Final Res ult Performing Organization Address [facility] Co de Phone Number [facility] [address] [place] [phone] * (ABNORMAL) CBC auto differential (07/27/2024 10:32 AM EST) White Blood Count 5.9 4.8 - 10.8 X10*3/uL [facility] Red Blood Count 4.67 4.20 - 5.50 X10*6/uL [facility] Hemoglobin 13.2 12.0 - 16.0 g/dl [facility] Hematocrit 40.6 37.0 - 47.0 % [facility] Mean Corpuscular Volume 86.9 80.0 - 98.0 fL [facility] Mean Corpuscular Hemoglobin 28.3 27.0 - 33.0 pg [facility] Mean Corpuscular HGB Conc 32.5 31.0 - 35.0 g/dl [facility] Red Cell Distribution Width 13.3 11.0 - 16.0 % [facility] Platelet Count 263 160 - 400 X10*3/uL [facility] Mean Platelet Volume 10.6 9.4 - 12.3 fL [facility] Neutrophils Percent Auto 62.3 45 - 73 % [facility] Imm Gran Pct Auto 0.5(H) 0.0 - 0.4 % [facility] Lymphocytes Percent Auto 29.3 20 - 40 % [facility] Monocytes Percent Auto 6.2 2 - 11 % [facility] Eosinophils Percent Auto 1.2 0 - 4 % [facility] Basophils Percent Auto 0.5 0 - 2 % [facility] NRBC Pct Auto 0.0 0.0 - 0.2 /100WBC [facility] Neutrophils Absolute Auto 3.7 2.0 - 8.3 x10*3/uL [facility] Imm Gran Abs Auto 0.03 0.00 - 0.03 X10*3/uL [facility] Lymphocytes Absolute Auto 1.7 1.2 - 4.9 X10*3/uL [facility] Monocytes Absolute Auto 0.4 0.1 - 1.2 X10*3/uL [facility] Eosinophils Absolute Auto 0.1 0.0 - 0.4 X10*3/uL [facility] Basophils Absolute Auto 0.0 0.0 - 0.2 X10*3/uL [facility] NRBC Abs Auto 0.000 0.0 - 0.012 X10*3/uL [facility] Blood Venous blood specimen / Unknown 07/27/2024 10:32 AM EST 07/27/2024 11:51 AM EST us Yoselin Hsieh [employer] OPER[employer] LAB BLOOD ORDERABLES Final Res ult [facility] [address] [place] [phone] * Iron And Total Iron Binding Capacity (07/27/2024 10:32 AM EST) Pathologist [facility] Iron 113 30 - 160 mcg/dL [facility] Total Iron Binding Capacity 249 228 - 428 mcg/dL [facility] Percent Iron Saturation 45 15 - 50 % [facility] Unsaturated Iron Binding 136 ug/dL [facility] Blood Venous blood specimen / Unknown 07/27/2024 10:32 AM EST 07/27/2024 11:51 AM EST Yoselin Alemanen [employer] OPERATOR LAB BLOOD ORDERABLES Final Res ult Performing Organization Address City/[facility]/ZIP Co de Phone Number [facility] [address] [place] [phone] * (ABNORMAL) Ferritin (07/27/2024 10:32 AM EST) Pathologist [facility] Ferritin 281(H) 10 - 250 ng/mL [facility] Blood Venous blood specimen / Unknown 07/27/2024 10:32 AM EST 07/27/2024 11:51 AM EST Yoselin Hsieh [employer]OCK DRILL OPERATOR LAB BLOOD ORDERABLES Final Res ult Performing Organization Address City/[facility]/ZIP Co de Phone Number [facility] [address] [place] [phone] * (ABNORMAL) Lipid Panel, Standard (07/27/2024 10:32 AM EST) Pathologist [facility] Triglycerides 132 <150 mg/dL [facility] Comment:Desirable Triglyceri de: less than 150 mg/dLBorderline High Triglyceride 150-199 mg/dLHigh Triglyceride: 200-499 mg/dLVery High Triglyceride: greater than or equal to 5OO mg/dL Cholesterol 195 <200 mg/dL [facility] Comment:Desirable Cholestero l: less than 200 mg/dLBorderline High Cholesterol: 200-239 mg/dLHigh Cholesterol: greater than 239 mg/dL LDL Cholesterol Calculated 118(H) <100 mg/dL [facility] Comment:Desirable LDL: less than 100 mg/dLNear Optimal/Above Optimal LDL: 110- 129 mg/dLBorderline High LDL: 130-159 mg/dLHigh LDL: 160-189 mg/dLVery High LDL: greater than or equal to 190 mg/dL HDL Cholesterol 51 >40 mg/dL [facility] Comment:Desirable HDL: great er than 40 mg/dL Note: This HDL assay may give artificially low results in patients with liver disease. Blood Venous blood specimen / Unknown 07/27/2024 10:32 AM EST 07/27/2024 11:51 AM EST us Yoselin Hsieh [employer]OCK DRILL OPERATOR LAB BLOOD ORDERABLES Final Res ult [facility] [address] [place] [phone] * (ABNORMAL) Comprehensive Metabolic Panel (07/27/2024 10:32 AM EST) Sodium 141 135 - 145 mmol/L [facility] Potassium 4.3 3.3 - 5.1 mmol/L [facility] Chloride 109(H) 96 - 108 mmol/L [facility] Carbon Dioxide 28 22 - 29 mmol/L [facility] Anion Gap 8(L) 12 - 20 [facility] Urea Nitrogen (BUN) 13 9 - 16 mg/dL [facility] Creatinine, Serum 0.75 0.5 - 1.4 mg/dL [facility] Estimated Glomerular Filt Rate >60 [facility] Comment:Chronic Kidney Disea se: Estimated GFR < 60 mL/min/[id number] Kidney Disease: Estimated GFR < 15 mL/min/1.73m2 Glucose 119(H) 60 - 115 mg/dL [facility] Calcium 9.1 8.4 - 10.2 mg/dL [facility] Bilirubin, Total 0.4 0.0 - 1.0 mg/dL [facility] Aspartate Amino Transferase 25 5 - 31 U/L [facility] Alanine Aminotransferase 16 0 - 31 U/L [facility] Total Protein 7.6 6.5 - 8.0 g/dL [facility] Albumin Level 3.9 3.5 - 5.0 g/dL [facility] Alkaline Phosphatase 94 39 - 117 U/L [facility] Blood Venous blood specimen / Unknown 07/27/2024 10:32 AM EST 07/27/2024 11:51 AM EST Yoselin QThruelzbieta [facility] LAB BLOOD ORDERABLES Final Res ult [facility] [address] [place] [phone] * (ABNORMAL) POCT HGB A1C (07/26/2024 10:37 AM EST) Hemoglobin A1C 6.6(A) 4.0 - 6.0 % QC Media Lot # [id number] Lot# Expiration Date Blood 07/26/2024 10:3 7 AM EST Yoselin Hsieh [facility] POINT OF CARE TEST ENTER/EDIT ORDERABLES Final Result * POCT Glucose (07/26/2024 10:37 AM EST) Glucose Blood, POC 166 60 - 200 mg/dL Comment:[employer] sharing[employer] Media Lot # [id number] Lot# Expiration Date Blood Capillary blood specimen / Unknown 07/26/2024 10:37 AM EST Yoselin QThruelzbieta [facility] POINT OF CARE TEST ENTER/EDIT ORDERABLES Final Result * HEPATITIS C AB W/REFL TO HCV RNA, QN, PCR (07/25/2021 1:14 PM EST) HEPATITIS C ANTIBODY NON-REACT PAMELA NON-REACT PAMELA [facility] INDEX 0.03 <1.00 [facility] Comment: ?? HCV antibody was non-reactive. There is no laboratory ?? evidence of HCV infection. ?? In most cases, no further action is required. However, if recent HCV exposure is suspected, a test for HCV RNA (test code 00911) is suggested. ?? For additional information please refer to http://education.ROKT/faq/NOZ19v0 (This link is being provided for informational/ educational purposes only.) ?? 07/25/2021 1:14 PM EST Kayce Faustin MELANGEUR OPERATOR HISTORICAL/NON ORDERABLE LABS F inal Result [facility] Anywhere [address] * Colonoscopy (09/20/2017) Colonoscopy Normal Normal Narrative Gracy Scott - 09/20/2017 Repeat in 10 years Historical Provider MD HEALTH MAINTENANCE Final Result from Last 3 Months or Most Recently Relevant to Health Maintenance Insurance [facility] Care Teams Operations Clerk Relationship Specialty Start Date End Date Yoselin Hsieh FNP [address] [place] [address] PCP - General Family Medicine 01/13/22 Nathanael Andrade MD [address] [place] [address] [address] [place] [address] Cardiology 04/09/24 Esperanza Campa OD [address] [place] [address] Optometry 04/09/24
--- OUTSIDE RECORDS SUMMARY | 2024-09-25 15:15 | XMS_ITS | Encounter Summary ---
Author Organization [employer] Address [address] [facility] [place] [address] Care Team Providers Care Amalgamator Name Role Phone Yoselin Hsieh KARI Primary Care Provider [phone] Nathanael Andrade MD Unavailable [phone] Esperanza Campa OD Unavailable [phone] Encounter Details Date Type Department Care Team (Late st Contact Info) Description 04/09/2023 Abstract [facility] [address] [place] [address] Gracy Scott Social History Tobacco Use Types [...] EDT Office Visit [facility] [address] [place] [address] Yoselin Hsieh FNP [address] [place] [address] documented as of this encounter Procedures Procedure Name Priority Date/Time Associated Diagnosis Comments COLONOSCOPY Routine 09/20/2017 documented in this encounter Results * Colonoscopy (09/20/2017) Colonoscopy Normal Normal Narrative Gracy Scott - 09/20/2017 Repeat in 10 years us Historical Provider HEALTH MAINTENANCE Final Result documented in this encounter Visit Diagnoses Not on filedocumented in this encounter Additional Health Concerns Assessment Noted Time PHQ-9 Depression Total Score: 7 02/23/20 23 1:28 PM EDT documented as of this encounter Care Teams Amalgamator Relationship Specialty Start Date End Date Yoselin Hsieh FNP [address] [place] [address] PCP - General Family Medicine 01/13/22 Nathanael Andrade MD [address]rd [place] [address] Cardiology 04/09/24 Esperanza Campa OD [address] [place] [address] Optometry 04/09/24 documented as of this encounter
--- OUTSIDE RECORDS SUMMARY | 2024-09-25 15:15 | XMS_ITS | Encounter Summary ---
Author Organization [employer] Address [address] [facility] [address] [place] [address] Care Team Providers Care Tax Assistant Name Role Phone Yoselin Hsieh Primary Care Provider [phone] Nathanael Andrade MD Unavailable Esperanza Campa OD Unavailable [phone] Reason for Visit * Reason Onset Date Comments PCP change 02/12/2023 Encounter Details Date Type Department Care Team (Late st Contact Info) Description 02/12/2023 Telephone [facility] [address] [place] [address] Yoselin Hsieh FNP [address] [place] [address] PCP change Social History Tobacco Use Types [...] Description 11/01/2024 10:30 AM EDT Office Visit [facility] [address] [place] [address] Yoselin Hsieh FNP [address] [place] [address] documented as of this encounter Visit Diagnoses Not on filedocumented in this encounter Care Teams Tax Assistant Relationship Specialty Start Date End Date Yoselin Hsieh FNP [address] [place] [address] PCP - General Family Medicine 01/13/22 Nathanael Andrade MD [address] [place] [address] 3rd [place] [address] Cardiology 04/09/24 Esperanza Campa OD [address] [place] [address] Optometry 04/09/24 documented as of this encounter
== END 2024-09-25 13:43 | disposition home or self-care (01) ==
LOC: HO.MAMMO 13:42
PROVIDERS: Visit Provider Registered Nurse
DX: Z12.31 Encounter for screening mammogram for malignant neoplasm of breast (principal)
CPT/HCPCS: 77063; 77067

== ENCOUNTER → 2024-09-25 14:15 | Outpatient (BNV) | payer MEDICARE, MEDICAID, SELFPAY | PROVIDERS: Visit Provider Internal Medicine | DX: Z12.31 Encounter for screening mammogram for malignant neoplasm of breast (principal) | CPT/HCPCS: 77063; 77067 ==

== ENCOUNTER 2024-11-20 12:32 | Outpatient (AMB) | payer MEDICARE, MEDICAID, SELFPAY ==
--- NOTE | 2024-11-20 12:42 | A.OFFVIS_ITS ---
Vital Signs 11/20/24 12:43 Height 5 ft 2 in Weight 161 lb 6.054 oz BMI 29.5 BP 140/82 H Blood Pressure Location Lt brachial Position Sitting Pulse 71 Pulse Source Monitor Intake Visit Reasons: 1 yr follow up/echocardiogram Windows Server Architect Required: No Windows Server Architect Services: Windows Server Architect Offered & Declined Windows Server Architect Name: yaakov/grandchild/[place] islander Accompanied by: Grand Child Allergies No Known Allergies Allergy (Verified 11/17/22 12:41) Medication List - Last Reconciled 11/20/24 by Nathanael Andrade MD cholecalciferol (vitamin D3) 50 mcg PO DAILY docusate sodium 100 mg PO BID PRN lisinopril 20 mg PO DAILY metformin 500 mg PO QPM rosuvastatin 20 mg PO BEDTIME HPI Comments Details: Angélica returns for follow-up regarding aortic valve stenosis. She denies any complaints like angina or shortness of breath or palpitations or in fact anything cardiac sounding. She states she is getting along fine. [facility] Medical History Non-rheumatic aortic stenosis Essential hypertension Surgical History Hx of colonoscopy Hx of hysterectomy Hx of section Family History Father Diabetes Mother No problems noted. Social History Patient Tobacco Use Status: Never used Tobacco Review of Systems Const Denies chills, Denies fatigue, Denies fever(s), Denies frequent falls, Denies weakness, Denies weight gain and Denies weight loss ENT Denies dizziness Card Denies chest pain, Denies leg edema, Denies lightheadedness, Denies palpitations, Denies dyspnea and Denies dyspnea on exertion Resp Denies cough, Denies dyspnea and Denies dyspnea on exertion GI Denies hematochezia Musc Denies abnormal gait, Denies muscle weakness, Denies numbness, Denies radiating pain into limb and Denies tingling Neuro Denies abnormal gait, Denies dizziness, Denies frequent falls, Denies numbness, Denies tingling and Denies weakness Endo Denies fatigue and Denies palpitations Physical Exam Vital Signs: Last Vital Signs Pulse 71 11/20/24 12:43 BP 140/82 H 11/20/24 12:43 BMI result Body Mass Index 29.5 Const General: comfortable and no acute distress Orientation/consciousness: patient oriented x3 HEENT Other: Unremarkable Head: Yes normal to inspection Neck Neck: Yes normal visual inspection Chest Chest palpation & inspection: normal inspection of the chest Resp Auscultation: clear to auscultation bilaterally Cardio Palpation: normal PMI Heart sounds: S1 normal heart sound present, S2 normal heart sound present, no gallops, Murmur heart sound present systolic III/ and at the right sternal border and no rubs GI Palpation (GI): Soft to palpation Back/Spine/Pelvis Other: unremarkable Skin General skin exam: no rashes or lesions noted Neuro General: patient oriented x3 Extrem General: Yes normal to inspection Psych Mental Status: mental status grossly normal Office Procedures EKG Details: EKG with underlying sinus rhythm at 71/Min; moderate criteria for LVH normal variant; [place] [id number], Complete Assessment & Plan Assessment & Plan (1) Non-rheumatic aortic stenosis: Code(s): I35.0 - Nonrheumatic aortic (valve) stenosis Category: Medical Plan: In the most recent echocardiogram, mean gradient is 15 mm Hg with a calculated valve area of 1.37 cm2. Dimensionless index 0.43. Thought to be eevs-ho-hhsmmbsw aortic stenosis. At this point, not hemodynamically significant. We will recheck echo in one year. Symptoms of aortic stenosis discussed. (2) Non-rheumatic aortic regurgitation: Code(s): I35.1 - Nonrheumatic aortic (valve) insufficiency Category: Medical Plan: Mild aortic regurgitation on the echocardiogram. Not of any clinical significance. (3) Essential hypertension: Code(s): I10 - Essential (primary) hypertension Category: Medical Plan: Borderline high blood pressure today and similar last year. She states she cannot recall the home blood pressure readings but it was okay with the PCP office. She is on lisinopril. No changes made today. May follow up on this with PCP. Plan Discussion Notes I discussed with the patient and her granddaughter that the aortic valve stenosis is stable and does not require immediate intervention. We agreed on a follow-up in a year unless symptoms develop. I advised them to monitor her blood pressure and report any significant changes or symptoms. Patient was informed and verbally consented to the use of an ambient scribe for clinic note documentation during this visit. Orders: Orders CA echo transthoracic complete 1 Year I35.0 - Nonrheumatic aortic (valve) stenosis Patient Instructions: - Monitor for symptoms such as chest pain or dizziness and contact healthcare provider if they occur. - Continue regular blood pressure monitoring and report any significant changes to primary care provider. - Follow up in one year unless symptoms develop sooner. Coding Level of Care Code Est Pt Level 4 (26011) Complex EM visit Add On G2211 Diagnoses Non-rheumatic aortic stenosis I35.0 Non-rheumatic aortic regurgitation I35.1 Essential hypertension I10 CPT Codes EKG - CPT: 63540-[id number], Complete ([id number])
[2024-11-20 12:43] VITALS: BP 140/82; PULSE 71; BMI 29.5
--- OUTSIDE RECORDS SUMMARY | 2024-11-20 12:59 | XMS_ITS | Clinical Summary ---
Author Organization [employer] Address [address] [place] [address] Care Team Providers Care Health Social Work Professor Name Role Phone Yoselin Hsieh KARI Primary Care Provider [phone] Nathanael Andrade MD Unavailable [phone] Esperanza Campa OD Unavailable [phone] Allergies No known active allergies Medications [...] 2 times daily. 180 capsule 3 024 Active rosuvastatin (Crestor) 20 MG tabletIndications :Mixed [...] the morning. 90 capsule 3 025 Active Lancets miscIndications:T ype 2 diabetes mellitus without complication, without long-term current use of insulin (CMS/HCC) Use to check BG 1-2 times dailyUse to check BG 1-2 times daily 100 each 2 025 Active glucose blood (OneTouch Ultra) test stripIndications: Type 2 diabetes mellitus without complication, without long-term current use of insulin (CMS/HCC) Use to test blood sugar 1-2 times daily 100 each 12 025 2025 Active OneTouch Delica Lancets 33G miscIndications:T ype 2 diabetes mellitus without complication, without long-term current use of insulin (CMS/HCC) Use to check BG 1-2 times daily 100 each 11 024 2024 Discontinued(R eorder (will not trigger notification to Pharmacy)) Active Problems Problem Noted Date Diagnosed Date Dental abscess 09/01/2023 SK (seborrheic keratosis) 02/23/2023 Overview (02/23/2023): -Right side of face: [id number] hyperpigmented plaque with stuck on appearance. Minor fissures noted -Suspected SK, which correlates with eval from [facility] Derm team in September 2022 -Reassurance provided, follow up with any changes or concerns Routine health maintenance 08/23/2022 Overview (11/01/2024): Mammo: 09/25/24 BIRADS 1. Cervical CA: N/A Colon CA: reports normal colonoscopy approx 5 years ago. Pt will attempt to follow up with office. Optometry: [facility] Jun 2024 Dental: established with dental home BMD: Normal DEXA August 2021 Assessment & Plan (11/01/2024 3:13 PM EDT): Offered Tdap vaccine. Pt declined today. Will consider in future. Assessment & Plan (02/23/2023 3:16 PM EDT): Influenza vaccine administered today Nonrheumatic aortic valve stenosis 06/11/2017 Assessment & Plan (04/09/2024 8:31 PM EST): Followed by [facility] Wally Andrade Last consult appt in October 2023, [...] Assessment & Plan (07/01/2023 7:24 AM EST): Followed by [facility] Wally Andrade Last consult appt in October 2022, with [...] Assessment & Plan (02/23/2023 3:19 PM EDT): Followed by [facility] Wally Andrade Last consult appt in October 2022, with [...] dizziness, blurry vision, dry cough -Follows with [facility] Cardiology Dr. Andrade -Encourage lifestyle interventions including [...] 04/30/2015 Type 2 diabetes mellitus 04/30/2015 Overview (11/01/2024): Well controlled off medications! Previously tx with metformin 500mg daily Lab Results Component Value Date HGBA1C 6.5 (A) 11/01/2024 HGBA1C 6.6 (A) 07/26/2024 HGBA1C 6.3 (A) 11/03/2023 HGBA1C 6.3 (A) 06/30/2023 HGBA1C 6.3 (A) 02/22/2023 HGBA1C 5.7 (H) 01/19/2022 HGBA1C 6.3 (H) 07/25/2021 HGBA1C 6.3 (H) 07/19/2020 A1c: (Target </= 8.0%) = well controlled Microalbumin/Cr:Alb: WNL Jun 2023 Lipids: LDL 118, TC 195, HDL 51, TG 132 in July 2024 Eye exam: 07/14/2024 negative for diabetic retinopathy or macular edema bilaterally Monofilament: WN jun 2023 Dental: up to date PNA (PPSV, then PCV 13): up to date TDap/Td: due HYACINTH/ARB: yes Statin: yes Assessment & Plan (11/01/2024 3:16 PM EDT): Cont w/ lifestyle interventions Assessment & Plan (07/27/2024 8:01 PM EST): Cont w/ lifestyle interventions Assessment & Plan (04/09/2024 8:36 PM EST): Cont w/ lifestyle interventions Assessment & Plan (11/04/2023 10:23 AM EDT): Cont w/ lifestyle interventions Vitamin D deficiency 04/30/2015 Assessment & Plan (07/01/2023 7:25 AM EST): -Continues with Vit D supplement - 2000 units/day -Recheck Lab: Vit D Encounters Date Type Department Care Team Description 11/01/2024 10:30 AM EDT Office Visit [facility] [address] [place] [id number] Yoselin Hsieh FNP Type 2 diabetes mellitus without complication, without long-term current use of insulin ([facility]/HCC) (Primary Dx); Routine health maintenance 11/01/2024 Travel 09/25/2024 Orders Only [facility] [address] [place] [address] Yoselin Hsieh FNP 09/15/2024 Refill [facility] [address] [place] [address] Yoselin Hsieh FNP Vitamin D deficiency 08/24/2024 Telephone [facility] [address] [place] [address] Yoselin Hsieh FNP Results from Last 3 Months Immunizations Immunization Administration Dates Next Due Influenza High-dose Quadrivalent [...] Sign Reading Time Taken Comments Blood Pressure 138/70 11/01/2024 11:26 AM EDT Pulse 68 11/01/2024 11:26 AM EDT Temperature 36.1 C (97 F) 11/01/2024 11:26 AM EDT Respiratory Rate 20 11/01/2024 11:26 AM EDT Oxygen Saturation 99% 04/05/2024 10:45 AM EST Inhaled Oxygen Concentration - - Weight 73.3 kg (161 lb 8 oz) 11/01/2024 11:26 AM EDT Height 157.5 cm (5' 2 ) 11/01/2024 11:26 AM EDT Body Mass Index 29.54 11/01/2024 11:26 AM EDT Plan of Treatment Health Maintenance Due Date Last Done Comments [...] exists SDOH Screening 11/02/2024 11/03/2023 Influenza Vaccine (Season Ended) 2025 02/22/2023, 03/15/2019, 03/21/2018, Additional history exists Alcohol/Substance Use Screening 04/05/2025 04/05/2024 COVID-19 Vaccine ( season) 2025 10/02/2020, 09/04/2020 Postponed from 01/23/2024 (Patient Refused) Depression Screening 04/09/2025 04/09/2024, 04/09/20 24 Diabetes: Hemoglobin A1C 05/03/2025 025, 07/26/2024, 11/03/2023, Additional history exists Diabetes: Urine Protein Screening 07/27/2025 07/27/2024, 07/05/2023, 07/25/2021, Additional history exists Lipid Panel 07/27/2025 07/27/2024, 06/24, 01/19/2022, Additional history exists Tobacco Screening 11/01/2025 11/01/2024 Eye Exam 07/14/2026 07/14/2024, 06/25, 07/14/2024, Additional [...] patient's age to complete this topic Meningococcal B Vaccine Aged Out No l onger eligible based on patient's age to complete [...] Procedure Name Priority Date/Time Associated Diagnosis Comments POCT GLYCATED HEMOGLOBIN, TOTAL Routine 11/01/2024 1:52 PM EDT Type 2 diabetes mellitus without complication, without long-term current use of insulin (CMS/HCC) POCT GLUCOSE Routine 11/01/2024 1:49 PM EDT Type 2 diabetes mellitus without complication, without long-term current use of insulin (CMS/HCC) BI MAMMOGRAM SCREENING TOMOSYNTHESIS BILATERAL Routine 09/25/2024 2:00 PM EDT ALBUMIN, RANDOM URINE W/CREATININE Routine 07/27/2024 10:32 [...] Relevant to Health Maintenance Results * (ABNORMAL) POCT HGB A1C (11/01/2024 1:52 PM EDT) Hemoglobin A1C 6.5(A) 4.0 - 6.0 % QC Media Lot # [id number] Lot# Expiration Date 351, Blood 11/01/2024 1:52 PM EDT Yoselin Hsieh TARPER POINT OF CARE TEST ENTER/EDIT ORDERABLES Final Result * POCT Glucose (11/01/2024 1:49 PM EDT) Glucose Blood, POC 122 60 - 200 mg/dL QC Media Lot # [id number] Lot# Expiration Date ,871 Blood Capillary blood specimen / Unknown 11/01/2024 1:49 PM EDT Yoselin Hsieh TARPER POINT OF CARE TEST ENTER/EDIT ORDERABLES Final Result * BI Mammogram Screening Tomosynthesis Bilateral (09/25/2024 2:00 PM EDT) Anatomical Region Laterality Modality Breast Bilateral Mammography 09/25/2024 2:00 PM EDT Narrative 10/01/2024 9:33 PM EDT [facility] [address] [place], [place] [address] Mammography Report Signed Patient: Angélica Rodriguez MR#: [id number] : 1950 Acct:[id number] Age/Sex: 74 / F ADM Date: 09/25/24 Loc: HO.MAMMO Attending Dr: Yoselin PIERCE Ordering Physician: Yoselin Hsieh Results: 1Negat pamela Date of Service: 09/25/24 Follow Up: 1 Year From Orig inal Mammogram Procedure(s): MM tomosynthesis screening BI Accession Number(s): [id number] cc: Yoselin Hsieh EXAMINATION: MM SCREENING DIGITAL BREAST TOMOSYNTHESIS, BILATERAL CLINICAL INFORMATION: Screening. Asymptomatic. COMPARISON: Mammography: Comparison is made with available priors TECHNIQUE: Digital breast mammography with tomosynthesis is performed in both the craniocaudal and mediolateral oblique views along with computer-aided detection (CAD). FINDINGS: There are scattered areas of fibroglandular density (ACR BI-RADS breast composition Category b). There are no significant masses, abnormal calcifications, or other abnormalities. MM/MM tomosynthesis screening BI IMPRESSION: No mammographic evidence of malignancy. ASSESSMENT: BI-RADS BI-RADS 1 - Negative RECOMMENDATION: Routine annual mammography screening. 1 year F/U This examination should not preclude the clinical evaluation of a suspicious palpable abnormality. This patient's information was entered into a reminder system with a target due date for their next mammogram. Electronically signed by: Cierra Bradford DO 10/01/2024 09:30 PM EDT Dictated By: Cierra Bradford DO Signed By: <Electronically signed by Cierra Bradford DO in OV> 10/01/24 2130 DD/ 1400 TD/TT: 09/25/24 1425 Research Environmental Scientist: Procedure Note Donotuseinterpreter, Image - 10/01/2024 [facility] [address] [place] [address] Mammography Report Signed Patient: Angélica Rodriguez#: [id number] : 9Acct:[id number] Age/Sex: 74 / FADM Date: 09/25/24 Loc: HO.MAMMO Attending Dr: Yoselin Hsieh TARPER Ordering Physician: Yoselin HsiehPResults: 1Negat pamela Date of Service: 09/25/24Follow Up: 1 Year From Orig inal Mammogram Procedure(s): MM tomosynthesis screening BI Accession Number(s): [id number] cc: Yoselin Hsieh EXAMINATION: MM SCREENING DIGITAL BREAST TOMOSYNTHESIS, BILATERAL CLINICAL INFORMATION: Screening. Asymptomatic. COMPARISON: Mammography: Comparison is made with available priors TECHNIQUE: Digital breast mammography with tomosynthesis is performed in both the craniocaudal and mediolateral oblique views along with computer-aided detection (CAD). FINDINGS: There are scattered areas of fibroglandular density (ACR BI-RADS breast composition Category b). There are no significant masses, abnormal calcifications, or other abnormalities. MM/MM tomosynthesis screening BI IMPRESSION: No mammographic evidence of malignancy. ASSESSMENT: BI-RADS BI-RADS 1 - Negative RECOMMENDATION: Routine annual mammography screening. 1 year F/U This examination should not preclude the clinical evaluation of a suspicious palpable abnormality. This patient's information was entered into a reminder system with a target due date for their next mammogram. Electronically signed by: Cierra Bradford DO 10/01/2024 09:30 PM EDT Dictated By: Cierra Bradford DO Signed By: <Electronically signed by Cierra Bradford DO in OV> 10/01/24 2130 DD/ 1400 TD/TT: 09/25/24 1425 Research Environmental Scientist: us Yoselin PIERCE IMG BI PROCEDURES Final Result * Albumin, Random Urine W/Creatinine (07/27/2024 10:32 AM EST) Creatinine, Urine 137.44 mg/dL [facility] Microalbumin Urine 36.0 mg/L [facility] Microalbum Creatinine Ratio Ur 26.1 <30 ug/mg cr [facility] Comment:Albumin/Creatinine R atio Reference Ranges: Normal: < 30 ug/mg creatinine Microalbuminuria: 30 - 300 ug/mg creatinineClinical Albuminuria: > 300 ug/mg creatinine Urine 07/27/2024 10:3 2 AM EST 07/27/2024 11:54 AM EST us Yoselin PIERCE LAB URINE ORDERABLES Final Res ult Performing Organization Address [facility] de Phone Number [facility] [address] [place] [address] [phone] * (ABNORMAL) Lipid Panel, Standard (07/27/2024 10:32 AM EST) Triglycerides 132 <150 mg/dL [facility] Comment:Desirable Triglyceri de: less than 150 mg/dLBorderline High Triglyceride 150-199 mg/dLHigh Triglyceride: 200-499 mg/dLVery High Triglyceride: greater than or equal to 5OO mg/dL Cholesterol 195 <200 mg/dL [facility] Comment:Desirable Cholestero l: less than 200 mg/dLBorderline High Cholesterol: 200-239 mg/dLHigh Cholesterol: greater than 239 mg/dL LDL Cholesterol Calculated 118(H) <100 mg/dL [facility] Comment:Desirable LDL: less than 100 mg/dLNear Optimal/Above Optimal LDL: 110- 129 mg/dLBorderline High LDL: 130-159 mg/dLHigh LDL: 160-189 mg/dLVery High LDL: greater than or equal to 190 mg/dL HDL Cholesterol 51 >40 mg/dL [facility] Comment:Desirable HDL: great er than 40 mg/dL Note: This HDL assay may give artificially low results in patients with liver disease. Blood Venous blood specimen / Unknown 07/27/2024 10:32 AM EST 07/27/2024 11:51 AM EST Yoselin Hsieh [facility] LAB BLOOD ORDERABLES Final Res ult Performing Organization Address [facility] Co de Phone Number [facility] [address] [place] [address] [phone] * HEPATITIS C AB W/REFL TO HCV RNA, QN, PCR (07/25/2021 1:14 PM EST) HEPATITIS C ANTIBODY NON-REACT P[facility]ELA NON-REACT [facility] INDEX 0.03 <1.00 [facility] Comment: HCV antibody was non-reactive. There is no laboratory evidence of HCV infection. In most cases, no further action is required. However, if recent HCV exposure is suspected, a test for HCV RNA (test code 19861) is suggested. For additional information please refer to [email or web address] (This link is being provided for informational/ educational purposes only.) 07/25/2021 1:14 PM EST Kayce Faustin NP HISTORICAL/NON ORDERABLE LABS F inal Result [facility] [address] * Colonoscopy (09/20/2017) Colonoscopy Normal Normal Narrative Gracy Scott - 09/20/2017 Repeat in 10 years Historical Provider MD HEALTH MAINTENANCE Final Result from Last 3 Months or Most Recently Relevant to Health Maintenance Insurance [facility] Care Teams Health Social Work Professor Relationship Specialty Start Date End Date Yoselin Hsieh FNP [address] [place] [address] PCP - General Family Medicine 01/13/22 Nathanael Andrade MD [address] [place] [address] Drive [address] [place] [address] Cardiology 04/09/24 Esperanza Campa OD [address] [place] [address] Optometry 04/09/24
== END 2024-11-20 12:58 | disposition home or self-care (01) ==
PROVIDERS: Family Provider Registered Nurse; Visit Provider Internal Medicine
DX: I35.0 Nonrheumatic aortic (valve) stenosis (principal); I35.1 Nonrheumatic aortic (valve) insufficiency; I10 Essential (primary) hypertension
CPT/HCPCS: 93010; 99214; G2211

== ENCOUNTER → 2024-11-20 12:32 | Outpatient (BNVA) | payer MEDICARE, MEDICAID, SELFPAY | PROVIDERS: Visit Provider Internal Medicine | DX: I35.0 Nonrheumatic aortic (valve) stenosis (principal); I35.1 Nonrheumatic aortic (valve) insufficiency; I10 Essential (primary) hypertension | CPT/HCPCS: 93005; 99212 ==